=== PATIENT | female | born 1980 | race Caucasian/White ===

== ENCOUNTER 2017-03-26 06:57 | Day surgery (SDC) | payer OTHER ==
[2017-03-19 11:39] VITALS: BMI 35.5
--- NOTE | 2017-03-20 13:55 | HP ---
Admitting History and Physical - Primary Care Physician PCP: Apple Madrigal - Admission Chief Complaint: Left breast cancer History of Present Illness: 36 year old premenapausal nulliparous female with Left breast cancer with tita mets stage 2B triple positve. She had an outstanding results S/P neoadjuvant chemotherapy. 02/2017 Breast MRI right breast negative left breast showed considerable decrease in size of left breast cancer from 2.1x2.8x1.3cm to 1.3x.4x.8cm. previously noted left axillary nodes are much smaller and now of normal size. History Source: Patient Limitations to Obtaining History: No Limitations - Past Medical History ...LMP: 10/16/16 Additional Past Medical History: left core bx and axillary core bx07/25/2016 invasive ductal carcinoma - Smoking History Smoking history: Former smoker Have you smoked in the past 12 months: No - Alcohol/Substance Use Hx Alcohol Use: No Home Medications - Allergies Allergies/Adverse Reactions: Allergies Allergy/AdvReac Type Severity Reaction Status Date / Time Iodinated Contrast Media - Allergy Severe Hives Verified 03/19/17 11:28 Oral and - Home Medications Home Medications: Ambulatory Orders Cholecalciferol (Vitamin D3) [Vitamin D3] 2,000 unit PO DAILY 03/19/17 Family Disease History - Family Disease History Other Family History: mat GGM renal cell carcinoma Physical Examination Constitutional: Yes: Well Nourished Breast(s): Yes: Other (excellent response to chemotherapy left breast) Problem List - Problems (1) Breast cancer, left breast Code(s): C50.912 - MALIGNANT NEOPLASM OF UNSPECIFIED SITE OF LEFT FEMALE BREAST Qualifiers: Breast location: upper outer quadrant of breast Patient sex: female Qualified Code(s): C50.412 - Malignant neoplasm of upper-outer quadrant of left female breast Assessment/Plan Left wide excision ,lymphoscintogram sentenel node biopsy, US needle localization of left breast and left axillary node
[2017-03-26] MEDS ORDERED: MIDAZOLAM HCL 2 MG/2 ML SINGLE DOSE VIAL ONE ×2 (11:45→12:51)
[2017-03-26] MEDS ORDERED: BUPIVACAINE HCL 0.25% 125 MG/50 ML VIAL ONE (12:22)
[2017-03-26] MEDS ORDERED: LIDOCAINE HCL 1%, 10 MG/ML (20ML VIAL) ONE ×2 (12:22→12:59)
[2017-03-26] MEDS ORDERED: ISOSULFAN BLUE 10 MG/ML VIAL SQ ONE ×2 (12:23→12:59)
[2017-03-26] MEDS ORDERED: PROPOFOL 20 ML ONE ×2 (12:57)
[2017-03-26] MEDS ORDERED: ROCURONIUM BROMIDE 50 MG/5 ML VIAL ONE (12:57)
[2017-03-26] MEDS ORDERED: ceFAZolin SODIUM 1 GM VIAL ONE ×3 (13:23→16:56)
[2017-03-26] MEDS ORDERED: ONDANSETRON 4 MG/2 ML VIAL ONE (13:45)
[2017-03-26] MEDS ORDERED: DEXAMETHASONE SOD PHOSPHATE 4 MG/1 ML VIAL ONE (13:45)
[2017-03-26] MEDS ORDERED: NEOSTIGMINE METHYLSULFATE 0.5 MG/ML - 10 ML MDV ONE (13:59)
[2017-03-26] MEDS ORDERED: GLYCOPYRROLATE 0.2 MG/1 ML VIAL ONE (13:59)
[2017-03-26] MEDS ORDERED: HYDROmorphone HCL/PF 1 MG/ML VIAL (FOR PYXIS CHARGING ONLY) ONE (14:14)
[2017-03-26] MEDS ORDERED: ZOLPIDEM TARTRATE 5 MG TABLET PO PRN (15:24)
[2017-03-26] MEDS ORDERED: ACETAMINOPHEN 325 MG TABLET (FP) PO PRN (15:24)
[2017-03-26] MEDS ORDERED: oxyCODONE HCL 5 MG TABLET PO PRN (15:24)
[2017-03-26] MEDS ORDERED: ONDANSETRON 4 MG/2 ML VIAL IVPB PRN (15:24)
[2017-03-26] MEDS ORDERED: ONDANSETRON 4 MG/2 ML VIAL IVPUSH PRN (15:26)
[2017-03-26] MEDS ORDERED: PROMETHAZINE HCL 25 MG/1 ML VIAL IVPUSH PRN (15:26)
[2017-03-26] MEDS ORDERED: HYDROmorphone HCL CARPU-JECT 1 MG/1 ML DISP.SYRIN IVPUSH PRN (15:26)
[2017-03-26] MEDS ORDERED: DEXTROSE 5%-0.45% SALINE 1,000 ML IV SCH (15:30)
[2017-03-27] MEDS: CEFAZOLIN (PRE-DOCKED) 50 ML IVPB SCH ×2 (01:31→10:29)
[2017-03-27 06:31] VITALS: BP 117/71; PULSE 95; TEMP 98.4
[2017-03-27 08:19] LABS: MCH 29.2 pg (25.7-33.7); MCHC 34.5 g/dl (32.0-36.0); MEAN CELL VOLUME 84.8 fl (80-96); MEAN PLT VOLUME 7.4 fl (7.5-11.1); PLATELET COUNT 306 K/MM3 (134-434); RDW 12.6 % (11.6-15.6); WHITE BLOOD COUNT 11.4 K/mm3 (4.0-10.8)
[2017-03-27] MEDS ORDERED: CHOLECALCIFEROL (VITAMIN D3) 1,000 UNIT TABLET (FP) PO SCH (10:00)
--- NOTE | 2017-03-27 11:13 | PN ---
Progress Note (short form) - Note Progress Note: Patient doing well. POD#1 s/p ax node dissection and lumpectomy. Pain adequately controlled. Nausea resolved. Continue current care.
--- NOTE | 2017-03-27 16:48 | OP ---
DATE OF OPERATION: 03/26/2017 PREOPERATIVE DIAGNOSIS: Left breast cancer with axillary metastasis, status post neoadjuvant chemotherapy. POSTOPERATIVE DIAGNOSIS: Left breast cancer with axillary metastasis, status post neoadjuvant chemotherapy. PROCEDURE PERFORMED: Left breast partial mastectomy with complex tissue transfer, sentinel lymph node biopsy and axillary lymph node dissection. SURGEON: Apple Madrigal MD [employer]SPORTATION DIRECTOR: ALAN Michelle ANESTHESIA: General, intubated. ESTIMATED BLOOD LOSS: Minimal. COMPLICATIONS: None. DESCRIPTION OF PROCEDURE: The patient was made aware of the risks and benefits of the procedure and consented. She was placed in the supine position, after going to Nuclear Medicine to get injected with technetium as well as Radiology for clip placement in the left breast. They were unable to see the left axillary clip and could not place a needle in that region. After general anesthesia was induced, the patient was intubated. One percent isosulfan blue 3.0 mL was locally infiltrated into the left breast tissue. The operative site was prepped and draped in the usual sterile fashion. Waiting approximately 10 minutes with gentle manual compression, a curvilinear incision was made in the left axilla. Using blunt and sharp dissection, tissues were dissected down to the axillary fat. Unfortunately, there was no obvious blue or radioactive tracer identified. There was a cluster of lymph nodes with some thickening where the usual sentinel nodes are identified, and these were surgically excised and submitted for a specimen radiograph, which showed the clip from the prior ultrasound-guided core biopsy of an axillary node. This specimen was then turned over for frozen section. Sterile gauze was placed in the axilla, and the breast was approached. A curvilinear elliptical incision was made over the left breast needle localization. Using electrocautery, tissues were dissected down to the needle. The needle was withdrawn to the puncture site and a wire to the wound. The tissues around the wire were then sharply excised and submitted with a short suture superior and long suture lateral. Specimen radiograph confirmed the presence of the index clip as well as adjacent suspicious microcalcifications. Additional segments were taken superior, inferior, medial, lateral and deep. The superficial margin was not taken as the skin overlying the lesion was removed. The wound was copiously irrigated with normal saline and hemostasis maintained by electrocautery. Tissue flaps were then formed and rotated into the cavity and closed with multiple layers of [id number] suture of 2-0 Vicryl in a scaffolding-type fashion. The skin was then closed with deep 3-0 Vicryl followed by running subcuticular 4-0 Monocryl. By that time the frozen section reported as 3 positive lymph nodes out of 7 lymph nodes excised. A dissection was then performed. The long thoracic nerve was identified medially and retracted medially. The thoracodorsal trunk was found and retracted laterally. Tissues were identified all the way up to the axillary vein and the tissue between the two were bluntly and sharply dissected free and submitted as additional left axillary tissue. The wound was copiously irrigated with normal saline. Hemostasis was maintained by electrocautery. Through an inferior stab wound, a number 10 Harshil-Thompson drain was placed into the axilla. The axillary tissue was then closed with deep 3-0 Vicryl followed by running subcuticular 4-0 Monocryl. Steri-Strips, sterile dressing and a compression bra were then applied. The patient, having tolerated the procedure well, was transferred to the recovery room in excellent condition. Spring [id number]
[2017-03-27] MEDS ORDERED: HEPARIN NA (PORCINE) 5,000 UNITS/ML 1ML VIAL SQ SCH (22:00)
--- NOTE | 2017-04-01 15:24 | PATH ---
Surgical Pathology Report Patient Name: ARIADNA JARAMILLO [facility]. Rec. #: [id number] /Age/Gender: 1980 (Age: 36) / F Account: [id number] Location: [facility] Taken: 03/26/2017 Received: 03/26/2017 Reported: 04/01/2017 Physicians: Apple Madrigal M.D. Specimen(s) Received A: LEFT AXILLARY NODES B: LEFT BREAST WIDE EXCISION C: LEFT BREAST DEEP MARGIN D: LEFT BREAST MEDIAL MARGIN E: LEFT BREAST SUPERIOR MARGIN F: LEFT BREAST INFERIOR MARGIN G: LEFT BREAST LATERAL MARGIN H: LEFT COMPLETION AXILLARY DISSECTION LEFT BREAST Clinical History Breast cancer Intraoperative Consult Diagnosis A. Left axillary nodes, frozen section A1, A2, A3, A4: Three of 7 (3/7) nodes positive for metastatic carcinoma. Bon Diane M.D., 03/26/17 Final Diagnosis A. LYMPH NODES, LEFT AXILLARY, SENTINEL LYMPH NODE EXCISION: METASTATIC CARCINOMA PRESENT IN THREE OF SEVEN LYMPH NODES (3/7), WITH LARGEST FOCUS MEASURING 3 MM IN GREATEST DIMENSION. NO EXTRACAPSULAR EXTENSION IDENTIFIED. B. LEFT BREAST, WIDE EXCISION WITH WIRE LOCALIZATION: INVASIVE DUCTAL CARCINOMA WITH FOCAL MICROPAPILLARY FEATURES, VAUGHN GRADE 2 OF 3 (TUBULE SCORE 3 OF 3, NUCLEAR GRADE 3 OF 3, MITOTIC SCORE 1 OF 3, TOTAL 7 OF 9), MEASURING 1.4 CM IN GREATEST DIMENSION MEASURED ON A SLIDE. DUCTAL CARCINOMA IN SITU (DCIS), HIGH NUCLEAR GRADE, SOLID PATTERN WITH CENTRAL NECROSIS AND ASSOCIATED CALCIFICATION PRESENT IN 10 OF 11 SUBMITTED SECTIONS (EXTENSIVE INTRADUCTAL COMPONENT). LYMPH-VASCULAR INVASION IS PRESENT. NO INVOLVEMENT OF OVERLYING SKIN IDENTIFIED. DCIS DIRECTLY EXTENDS TO THE DEEP ASPECT OF THE SPECIMEN, AND DCIS AND INVASIVE CARCINOMA ARE LESS THAN 1 MM FROM THE MEDIAL ASPECT OF THE SPECIMEN (SEE SPECIMENS C-G FOR FINAL MARGINS). C. LEFT BREAST, DEEP MARGIN, EXCISION: DUCTAL CARCINOMA IN SITU (DCIS), HIGH NUCLEAR GRADE, SOLID PATTERN PRESENT IN 3 OF 5 SUBMITTED BLOCKS. DCIS IS LESS THAN 1 MM FROM THE INKED MARGIN. ENDOLYMPHATIC TUMOR EMBOLI ARE PRESENT. D. LEFT BREAST, MEDIAL MARGIN, EXCISION: BENIGN BREAST TISSUE. E. LEFT BREAST, SUPERIOR MARGIN, EXCISION: DUCTAL CARCINOMA IN SITU (DCIS), HIGH NUCLEAR GRADE, SOLID PATTERN PRESENT IN 3 OF 4 SUBMITTED BLOCKS. DCIS IS LESS THAN 1 MM FROM THE INKED MARGIN. ENDOLYMPHATIC TUMOR EMBOLI ARE PRESENT. F. LEFT BREAST, INFERIOR MARGIN, EXCISION: DUCTAL CARCINOMA IN SITU (DCIS), HIGH NUCLEAR GRADE, SOLID PATTERN PRESENT IN ONE OF 3 SUBMITTED BLOCKS. DCIS IS 2 MM FROM THE INKED MARGIN. ENDOLYMPHATIC TUMOR EMBOLI ARE PRESENT. G. LEFT BREAST, LATERAL MARGIN, EXCISION: DUCTAL CARCINOMA IN SITU (DCIS), HIGH NUCLEAR GRADE, SOLID PATTERN PRESENT IN ONE OF 4 SUBMITTED BLOCKS. DCIS IS 5 MM FROM THE INKED MARGIN H. LYMPH NODES, LEFT AXILLARY, COMPLETION DISSECTION: METASTATIC CARCINOMA PRESENT IN FOUR OF FIFTEEN LYMPH NODES (4/15), WITH LARGEST METASTATIC FOCUS MEASURING 5 MM IN GREATEST DIMENSION. ONE LYMPH NODE SHOWS MINIMAL EXTRACAPSULAR EXTENSION. Comment: Assays for ER, NJ, Her2 and Ki67 are pending, and a report will follow. See also prior Slide Review [id number]. Comments Breast Invasive Carcinoma: Surgical Pathology Cancer Case Summary Based on AJCC/UICC TNM, 7th edition Procedure _X__ Excision with image-guided localization Lymph Node Sampling (select all that apply) (required only if lymph nodes are present in the specimen) _X__ [place] lymph node(s) _X__ Axillary dissection (partial or complete dissection) Specimen Laterality _X__ Left Tumor Size: Size of Largest Invasive Carcinoma Greatest dimension of largest focus of invasion over 1 mm: 14 mm Tumor Focality _X__ Single focus of invasive carcinoma Macroscopic and Microscopic Extent of Tumor Skin _X__ Invasive carcinoma does not invade into the dermis or epidermis Nipple _X__ Not applicable (excisions less than total mastectomy) Ductal Carcinoma In Situ (DCIS) _X__ DCIS is present _X__ as a major component (>25% of tumor, extensive intraductal component) Histologic Type of Invasive Carcinoma : _X__ Other(s) (specify): _Iinvasive ductal carcinoma with focal micropapillary features_ Histologic Grade: (Vaughn Histologic Score) Tubular Differentiation _X__ Score 3 Nuclear Pleomorphism _X__ Score 3 Mitotic Rate _X__ Score 1 Overall Grade _X__ Grade 2: scores of 6 or 7 (moderately differentiated) Margins _X__ Margins uninvolved by invasive carcinoma (required only if residual invasive carcinoma is present in specimen) Distance from closest margin: Cannot be determined. Invasive carcinoma is <1mm from the medial aspect of the wide excision (Specimen B), but is not present in the final margins (Specimens C-G) _X__ Margin(s) close to (< 1 mm) DCIS: Deep and Superior Lymph-Vascular Invasion _X__ Present Lymph Nodes Total number of lymph nodes examined (sentinel and nonsentinel): 22 Number of sentinel lymph nodes examined: 7 Number of lymph nodes with macrometastases ( > 2 mm): 6 Number of lymph nodes with micrometastases (>0.2 mm to 2 mm and/or >200cells):1 Number of lymph nodes with isolated tumor cells (=0.2 mm and =200 cells): 0 Size of largest metastatic deposit (if present): 5 mm Extranodal Extension _X__ Present Pathologic Staging (pTNM) Primary Tumor (Invasive Carcinoma): ypT1c Regional Lymph Nodes (pN): ypNa Biomarker Studies Results of ER, NJ, Her2 and Ki67 studies will be reported separately in an addendum. Electronically Signed Amaury Diane M.D. Addendum Reported: 04/03/2017 Addendum Diagnosis Part B: Results of Estrogen Receptor (ER) and Progesterone Receptor (NJ) studies performed on block B1 at [facility] are as follows: ER (clone [id number] mouse monoclonal antibody by [employer]): >90% nuclear staining with moderate intensity (Positive). NJ (clone16 mouse monoclonal antibody by [employer]): ~90% nuclear staining with strong intensity (Positive). Results of Her2 (IHC) & Ki-67 studies performed on block B1 at [place], [place] ([id number]) are as follows: Her2 IHC (EP3 from [employer], formerly known as [id number], using [employer] Polymer Refine detection kit): 0 (Negative) Ki-67: ~30% (High proliferation index) Positive and negative controls (internal if applicable) show appropriate results. Formalin fixation and cold ischemic times are within current ASCO/CAP recommendations for ER, NJ and Her2 testing. Camacho Lewis M.D. Addendum Reported: 04/18/2017 Addendum Diagnosis Per request from Dr. Dorina Lebron on 04/09/17, ER, NJ & Her2 studies were performed on one manufacturer representative left axillary sentinel lymph node: Results of ER &NJ studies performed on block A4 (left axillary sentinel lymph node) at [facility] are as follows: ER (clone [id number] mouse monoclonal antibody by [employer]) : >90 % nuclear staining with strong intensity (Positive). NJ (clone16 mouse monoclonal antibody by [employer]): >90% nuclear staining with strong intensity (Positive). Results of Her2 (IHC) & Ki-67 studies performed on block A4 (left axillary sentinel lymph node) at [facility], [place], [place] ([id number]) are as follows: Her2 IHC (EP3 from [employer], formerly known as [id number], using [employer] Polymer Refine detection kit):0 (Negative). Positive and negative controls (internal if applicable) show appropriate results. Formalin fixation and cold ischemic times are within current ASCO/CAP recommendations for ER, NJ and Her2 testing. Coco Freeman M.D. Addendum Reported: 05/03/2017 Addendum Diagnosis This case was reviewed at [facility], and slides from the superior and inferior margin specimens (Specimens E and F) were re-examined, along with additional immunostains performed at [facility] in [place], [place] ([id number]). In addition to the previously noted DCIS and lymph-vascular tumor emboli, additional foci of invasive carcinoma are present. These foci are <1 mm from the Superior and Inferior margin. Amaury Diane M.D. Gross Description A. Received fresh for frozen section labeled "left axillary nodes" is a 5 x 4 x 1.5 cm portion of yellow adipose tissue containing 7 possible lymph nodes, the largest of which measures 1.3 cm in greatest dimension. The 3 largest lymph nodes are bisected and show a uniform tatum cut surface with no lesions identified. All of the lymph nodes are frozen and the frozen remainders are submitted as follows: A1-one bisected lymph node; A2-one bisected lymph node; A3-one bisected lymph node; A4-4 possible lymph nodes. B. Received in formalin, labeled "left breast wide excision," is a 5.3 x 4.7 x 4.5 cm. tatum-yellow, irregular, portion of fibroadipose tissue with a needle localization wire present. There is a short suture marking the superior aspect and a long suture marking the lateral aspect, per the surgeon. The anterior surface displays a 3.2 x 0.8 cm tatum, elliptical portion of skin. The specimen is inked as follows: Superior blue; inferior green; lateral red; medial yellow; deep black. The specimen is serially sectioned from medial to lateral. Sectioning reveals a 1.3 x 0.9 x 0.9 cm tatum, ill-defined, indurated mass focally at 0.5 cm from the superior margin. The mass is surrounded by focally firm fibrous tissue. The remaining margins appear clear of the mass. Side Seam Tender sections are submitted in 11 cassettes as follows: 1-fullface section of mass with superior margin; 2-additional mass with superior margin; 3-4-fibrous tissue with skin; 5-6-fibrous tissue with inferior margin; 7-8-fibrous tissue with deep margin; 9-10-medial margin; 11-lateral margin. Time to formalin fixation: 5 minutes Total formalin fixation time: Approximately 28 hours. C. Received in formalin labeled "deep margin left breast," is a 3.3 x 3.1 x 0.9 cm irregular portion of fibroadipose tissue with a clip marking the new margin, per the surgeon. The new margin is inked black and the specimen is serially sectioned. The specimen is entirely and sequentially submitted in 5 cassettes. D. Received in formalin labeled "medial margin left breast," is a 4.2 x 3.0 x 1.4 cm irregular portion of fibroadipose tissue with a clip marking the new margin, per the surgeon. The new margin is inked black and the specimen is serially sectioned. Side Seam Tender sections are sequentially submitted in 5 cassettes. E. Received in formalin labeled "superior margin left breast," is a 3.0 x 2.3 x 1.3 cm irregular portion of fibroadipose tissue with a clip marking the new margin, per the surgeon. The new margin is inked black and the specimen is serially sectioned. The specimen is entirely and sequentially submitted in 4 cassettes. F. Received in formalin labeled "inferior margin left breast," is a 3.0 x 2.1 x 0.6 cm irregular portion of fibroadipose tissue with a clip marking the new margin, per the surgeon. The new margin is inked black and the specimen is serially sectioned. The specimen is entirely submitted in 3 cassettes. G. Received in formalin labeled "lateral margin left breast," is a 4.0 x 3.1 x 1.0 cm irregular portion of fibroadipose tissue with a clip marking the new margin, per the surgeon. The new margin is inked black and the specimen is serially sectioned. Side Seam Tender sections are sequentially submitted in 4 cassettes. H. Received in formalin labeled "left completion axillary dissection left breast," is a 9.5 x 8.0 x 1.8 cm aggregate of yellow, lobulated adipose tissue. Sectioning reveals multiple tatum, irregular lymph nodes ranging from 0.3-0.8 cm in greatest dimension. The lymph nodes are entirely submitted in 7 cassettes as follows: 1-3-one whole bisected lymph node each; 5-5-qjwaohps whole lymph nodes each. [facility]/03/26/2017 [facility]/03/26/2017
== END 2017-03-27 12:01 | disposition home or self-care (01) ==
LOC: FASU 06:57 → FM/S 19:44 → FASU 03-27 12:01
PROVIDERS: ATTEND Surgery Surgical Oncology
PROC: 0HBU0ZZ Excision of Left Breast, Open Approach (ICD-10-PCS; principal; 2017-03-26 13:37)
PROC: 0JX60ZB Transfer Chest Subcutaneous Tissue and Fascia with Skin and Subcutaneous Tissue, Open Approach (ICD-10-PCS; 2017-03-26 13:37)
DX: C50.912 Malignant neoplasm of unspecified site of left female breast (principal); C77.3 Secondary and unspecified malignant neoplasm of axilla and upper limb lymph nodes
CPT/HCPCS: 19281; 36415; 78195-TC; 84703; 85027; 88307-TC; 88331-TC; 88332; 88342-TC; 94760; A9541

== ENCOUNTER 2017-08-20 06:23 | Inpatient (IN) | payer OTHER ==
--- NOTE | 2017-08-16 13:52 | HP ---
Admitting History and Physical - Primary Care Physician PCP: Apple Madrigal - Admission Chief Complaint: left breast cancer with mets History of Present Illness: 37 yo female S/P left WE ANDx 03/26/2017 ,neoadjuvant chemo for this left mod- diff IDC, ER/RI positive, HER2 pos, and 7+/22 nodes is now presenting for mastectomy with reconstruction. Patient is getting Herceptin and had left chest wall radiation as well. (1.4 cm of residual infiltrating ductal noted). History Source: Patient Limitations to Obtaining History: No Limitations - Past Medical History ...LMP: 10/16/16 - Past Surgical History Additional Past Surgical History: left breast WE with NL and ANDx (1.4 cm residual IDC 7+/22 nodes) 03/26/2017 - Smoking History Smoking history: Former smoker Have you smoked in the past 12 months: No - Alcohol/Substance Use Hx Alcohol Use: No Home Medications - Allergies Allergies/Adverse Reactions: Allergies Allergy/AdvReac Type Severity Reaction Status Date / Time Iodinated Contrast- Oral and Allergy Severe Hives Verified 03/19/17 11:28 IV Dye [Iodinated Contrast Media - Oral and] - Home Medications Home Medications: Ambulatory Orders Cholecalciferol (Vitamin D3) [Vitamin D3] 2,000 unit PO DAILY 03/19/17 Oxycodone HCl/Acetaminophen [Percocet 5-325 mg Tablet -] 1 - 2 tab PO Q6H #30 tablet MDD 6 03/26/17 Family Disease History - Family Disease History Other Family History: mat GGM-renal ca Review of Systems - Review of Systems Constitutional: reports: No Symptoms Physical Examination Constitutional: Yes: Well Nourished, Calm Breast(s): Yes: Other (Left well healed incision without discharge or erythema. No other palpable masses or adenopathy noted.) Problem List - Problems (1) Breast cancer, left breast Code(s): C50.912 - MALIGNANT NEOPLASM OF UNSPECIFIED SITE OF LEFT FEMALE BREAST Qualifiers: Breast location: upper outer quadrant of breast Patient sex: female Qualified Code(s): C50.412 - Malignant neoplasm of upper-outer quadrant of left female breast; Z17.0 - Estrogen receptor positive status [ER+] Assessment/Plan Plan: Left total mastectomy with reconstruction
[2017-08-16 15:12] VITALS: BMI 35.4
[2017-08-20] MEDS ORDERED: HEPARIN NA (PORCINE) 5,000 UNITS/ML 1ML VIAL ONE (07:15)
[2017-08-20] MEDS ORDERED: LIDOCAINE HCL 4% PRESERVE-FREE 5 ML AMP ONE ×2 (07:17→17:09)
[2017-08-20] MEDS ORDERED: BUPIVACAINE LIPOSOME/PF (EXPAREL) 266 MG/20 ML VIAL NR ONE (07:30)
[2017-08-20] MEDS ORDERED: SUCCINYLCHOLINE CHLORIDE 200 MG/10 ML VIAL ONE (07:53)
[2017-08-20] MEDS ORDERED: ROCURONIUM BROMIDE 50 MG/5 ML VIAL ONE ×4 (07:53→12:12)
[2017-08-20] MEDS ORDERED: PROPOFOL 20 ML ONE (07:53)
[2017-08-20] MEDS ORDERED: MIDAZOLAM HCL 2 MG/2 ML SINGLE DOSE VIAL ONE (07:54)
[2017-08-20] MEDS ORDERED: LIDOCAINE HCL/PF 2% SDV 5ML VIAL ONE (07:55)
[2017-08-20] MEDS ORDERED: SCOPOLAMINE HYDROBROMIDE 1 PATCH PATCH.TD72 ONE (08:01)
[2017-08-20] MEDS ORDERED: HEPARIN NA (PORCINE) 5,000 UNITS/ML 1ML VIAL SQ ONE (08:46)
[2017-08-20] MEDS ORDERED: DEXAMETHASONE SOD PHOSPHATE 4 MG/1 ML VIAL ONE (08:50)
[2017-08-20] MEDS ORDERED: ceFAZolin SODIUM 1 GM VIAL ONE ×2 (08:50→14:05)
[2017-08-20] MEDS ORDERED: ONDANSETRON 4 MG/2 ML VIAL ONE ×2 (08:50→18:21)
[2017-08-20] MEDS ORDERED: ceFAZolin SODIUM 1 GM VIAL IVPB ONE (08:53)
[2017-08-20] MEDS ORDERED: HYDROmorphone HCL/PF 1 MG/ML VIAL (FOR PYXIS CHARGING ONLY) ONE ×2 (09:20→14:21)
[2017-08-20] MEDS ORDERED: DESFLURANE GAS 240 ML BOTTLE IH ONE (09:45)
[2017-08-20] MEDS ORDERED: GLYCOPYRROLATE 0.2 MG/1 ML VIAL ONE (15:34)
[2017-08-20] MEDS ORDERED: NEOSTIGMINE METHYLSULFATE 0.5 MG/ML - 10 ML MDV ONE (15:34)
[2017-08-20] MEDS ORDERED: ALTEPLASE 2 MG VIAL IA ONE (16:39)
[2017-08-20] MEDS ORDERED: HEPARIN INFUSION - 500 ML IVPB ONE (16:46)
[2017-08-20] MEDS ORDERED: PROMETHAZINE HCL 25 MG/1 ML VIAL IVPUSH PRN (18:32)
[2017-08-20] MEDS ORDERED: METOCLOPRAMIDE HCL INJECTION 10 MG/2 ML VIAL IVPB PRN (18:37)
[2017-08-20] MEDS ORDERED: ONDANSETRON 4 MG/2 ML VIAL IVPUSH PRN (18:37)
[2017-08-20] MEDS ORDERED: PROCHLORPERAZINE MALEATE 25 MG SUPP.RECT PR PRN (18:37)
[2017-08-20] MEDS ORDERED: ZOLPIDEM TARTRATE 5 MG TABLET PO PRN (18:37)
[2017-08-20] MEDS ORDERED: D5-1/2NS+10 MEQ KCL - 1,000 ML IV SCH (18:45)
[2017-08-20] MEDS ORDERED: LACTATED RINGERS SOLUTION 1,000 ML IV SCH (18:45)
[2017-08-20] MEDS ORDERED: HYDROmorphone *PCA* 10MG/50ML DISP.SYRIN PCA SCH ×2 (18:45→20:02)
[2017-08-20 20:25] LABS: MCHC 33.4 g/dl (32.0-36.0); MEAN CELL VOLUME 83.8 fl (80-96); MEAN PLT VOLUME 7.3 fl (7.5-11.1); PLATELET COUNT 241 K/MM3 (134-434); RDW 13.5 % (11.6-15.6); WHITE BLOOD COUNT 13.6 K/mm3 (4.0-10.0)
[2017-08-20 20:55] LABS: ANION GAP 6 (8-16); CO2 27 mmol/L (21-32); CREATININE 0.7 mg/dL (0.55-1.02); GLUCOSE,RANDOM 200 mg/dL (74-106)
[2017-08-20] MEDS ORDERED: HEPARIN NA (PORCINE) 5,000 UNITS/ML 1ML VIAL SQ SCH (22:00)
--- NOTE | 2017-08-20 22:27 | SURG ---
Surgery Mine Technician Note Mine Technician: Onel Cordoba PA-C Date of Service: 08/20/17 Diagnosis: Left breast cancer Procedure: Left breast reconstruction --> JOE flap I was present for the entirety of the operative procedure. For further detail, please refer to operative report. Visit type - Case Type Case Type: Scheduled Admission - New patient This patient is new to me today: Yes Date on this admission: 08/21/17
--- NOTE | 2017-08-20 22:58 | CONSULT ---
Consult Consult Specialty:: Pulmonary critical care Reason for Consultation:: s/p left total mastectomy with reconstuction - History of Present Illness Chief Complaint: s/p mastectomy with reconstruction History of Present Illness: Pt is a 36 yo female with L breast CA presented today for Left total mastectomy with reconstruction and JOE flap. Now transferred to ICU for post-op observation and management. On arrival to ICU pt extubated, hemodynamically stable with no complaints. Post op Hgb 10.5, 2 units ordered prior to pt's transfer and 1st unit is now infusing. Pt on dilaudid PERSONNEL TRAINING OFFICER for pain with adequate rebolledo relief. She was also started on abx in OR with plan to continue. Current Medications Fentanyl (Sublimaze Injection -) 25 mcg IVPUSH [id number] PRN PRN Reason: PAIN Stop: 08/23/17 18:42 Last Admin: 08/20/17 19:10 Dose: 25 mcg Heparin Sodium (Porcine) (Heparin -) 5,000 unit SQ BID ERI Hydromorphone HCl (Dilaudid Director Advanced -) 10 mg PERSONNEL TRAINING OFFICER PERSONNEL TRAINING OFFICER ERI PRN Reason: Protocol Stop: 08/27/17 18:34 Lactated Ringer's (Lactated Ringers Solution) 1,000 mls @ 75 mls/hr IV ASDIR ERI Cefazolin Sodium 1 gm/ (Dextrose) 50 mls @ 100 mls/hr IVPB Q8H-IV ERI Potassium Chloride/Dextrose/Sod Cl (D5-1/2ns+10 Meq Kcl -) 1,000 mls @ 150 mls/ hr IV ASDIR ERI Stop: 08/21/17 18:37 Metoclopramide HCl (Reglan Injection -) 10 mg IVPB Q6H PRN PRN Reason: NAUSEA AND/OR VOMITING Ondansetron HCl (Zofran Injection) 4 mg IVPUSH Q6H PRN PRN Reason: NAUSEA AND/OR VOMITING Prochlorperazine Maleate (Compazine Suppository -) 25 mg DC Q12H PRN PRN Reason: NAUSEA AND/OR VOMITING Promethazine HCl (Phenergan Injection -) 12.5 mg IVPUSH Q6H PRN PRN Reason: NAUSEA-FOR RESCUE AFTER 15 MIN Stop: 08/21/17 00:33 Zolpidem Tartrate (Ambien -) 5 mg PO HS PRN PRN Reason: INSOMNIA Stop: 08/23/17 18:37 - Past Medical History ...LMP: 10/16/16 ...LMP Comment: SINCE CHEMO ...: No - Alcohol/Substance Use Hx Alcohol Use: Yes (RARELY) - Smoking History Smoking history: Never smoked Have you smoked in the past 12 months: No Home Medications - Allergies Allergies/Adverse Reactions: Allergies Allergy/AdvReac Type Severity Reaction Status Date / Time Iodinated Contrast- Oral and Allergy Severe Hives Verified 08/20/17 07:32 IV Dye [Iodinated Contrast Media - Oral and] hydrocodone bitartrate AdvReac Severe Verified 08/20/17 07:32 [From Vicodin] oxycodone AdvReac Severe Verified 08/20/17 07:32 - Home Medications Home Medications: Ambulatory Orders Cholecalciferol (Vitamin D3) [Vitamin D3] 2,000 unit PO DAILY 03/19/17 Aspirin EC 81 mg PO DAILY 08/16/17 Tamoxifen Citrate 20 mg PO DAILY 08/16/17 Family Disease History - Family Disease History Other Family History: mat GGM-renal ca Physical Exam Vital Signs: Vital Signs Temperature 97.6 F 08/20/17 18:25 Pulse Rate 68 08/20/17 21:55 Respiratory Rate 16 08/20/17 21:55 Blood Pressure 115/60 08/20/17 21:55 O2 Sat by Pulse Oximetry (%) 100 08/20/17 21:55 Constitutional: Yes: No Distress Eyes: Yes: WNL Cardiovascular: Yes: Regular Rate and Rhythm Respiratory: Yes: CTA Bilaterally Gastrointestinal: Yes: Soft, Other (lower abdomen incision c/d/i with steri strips and KHOA drain draining serosanguinous fluid) Edema: No Integumentary: Yes: Incision (Left breast and lower abdomen incisions c/d/i with steri strips and 3 KHOA drains. Arterial doppler attached) Labs: CBC, BMP 08/20/17 20:10 08/20/17 20:10 Problem List - Problems (1) Breast cancer, left breast Code(s): C50.912 - MALIGNANT NEOPLASM OF UNSPECIFIED SITE OF LEFT FEMALE BREAST Qualifiers: Breast location: upper outer quadrant of breast Patient sex: female Qualified Code(s): C50.412 - Malignant neoplasm of upper-outer quadrant of left female breast; Z17.0 - Estrogen receptor positive status [ER+] Assessment/Plan ASSESSMENT: Pt is a 36 yo female with L breast CA presented today for Left total mastectomy with reconstruction and JOE flap. Now transferred to ICU for post-op observation and management. PLAN: -surgery following -monitor KHOA drain output -transfuse 2 units PRBC -CBC post transfusion -pain management with dilaudid PERSONNEL TRAINING OFFICER -antiemetics -cont fluids -Heparin SubQ for DVT ppx -cont Cefazolin Uma Lynch Critical Care time: 35 min
[2017-08-21] MEDS ORDERED: CEFAZOLIN 1 GM in DEXTROSE 5%-WATER - 50 ML IVPB SCH ×2 (02:00→10:00)
[2017-08-21] MEDS ORDERED: PT OWN MED DRAWER 7, Y5N ONE ×3 (02:26→19:29)
[2017-08-21 05:11] LABS: BASOPHIL 0.1 % (0-2.0); MCH 28.4 pg (25.7-33.7); MCHC 32.7 g/dl (32.0-36.0); MEAN CELL VOLUME 86.7 fl (80-96); NEUTROPHILS 84.8 % (42.8-82.8); PLATELET COUNT 181 K/MM3 (134-434); RDW 13.8 % (11.6-15.6); WHITE BLOOD COUNT 9.4 K/mm3 (4.0-10.0)
[2017-08-21 05:22] LABS: INR 1.32 (0.82-1.09); PROTHROMBIN TIME (PATIENT) 14.6 SEC (9.98-11.88)
[2017-08-21] MEDS ORDERED: HEPARIN NA (PORCINE) 5,000 UNITS/ML 1ML VIAL ONE (05:54)
[2017-08-21] MEDS ORDERED: LIDOCAINE HCL 4% PRESERVE-FREE 5 ML AMP ONE (05:55)
[2017-08-21] MEDS ORDERED: PROPOFOL 20 ML ONE (06:07)
[2017-08-21] MEDS ORDERED: ROCURONIUM BROMIDE 50 MG/5 ML VIAL ONE ×3 (06:08→07:42)
[2017-08-21] MEDS ORDERED: ceFAZolin SODIUM 1 GM VIAL IVPB ONE (06:20)
[2017-08-21] MEDS ORDERED: MIDAZOLAM HCL 2 MG/2 ML SINGLE DOSE VIAL ONE (06:22)
[2017-08-21] MEDS ORDERED: ePHEDrine SULFATE 50 MG/1 ML AMPULE ONE (06:58)
[2017-08-21] MEDS ORDERED: HEPARIN INFUSION - 500 ML IVPB ONE (07:16)
[2017-08-21] MEDS ORDERED: GLYCOPYRROLATE 0.2 MG/1 ML VIAL ONE (08:11)
[2017-08-21] MEDS ORDERED: NEOSTIGMINE METHYLSULFATE 0.5 MG/ML - 10 ML MDV ONE (08:12)
[2017-08-21] MEDS ORDERED: LIDOCAINE HCL/PF 2% SDV 5ML VIAL ONE (08:20)
--- NOTE | 2017-08-21 08:46 | PN ---
Progress Note (short form) - Note Progress Note: Called at 4:30 loss of arterial flow signal. At bedside at 5:00, in OR by 5:30 for revision of anastamosis. Patient aware of need for continued monitoring. Flap is re-perfused. Heparin gtt started ASA to start Continue ICU monitoring and continuous flap monitoring
[2017-08-21] MEDS: HEPARIN INFUSION - 500 ML IVPB SCH (08:50)
--- NOTE | 2017-08-21 08:53 | OP ---
DATE OF OPERATION: 08/20/2017 PREOPERATIVE DIAGNOSIS: Left breast cancer. POSTOPERATIVE DIAGNOSIS: Left breast cancer. PROCEDURE PERFORMED: Left total mastectomy, non nipple sparing. SURGEON: Apple Madrigal MD ANESTHESIA: General, intubated. ESTIMATED BLOOD LOSS: Minimal. COMPLICATIONS: None. DESCRIPTION OF PROCEDURE: The patient was made aware of the risks and benefits of the procedure and consented. She was placed in the supine position. After general anesthesia was induced, the patient was intubated. The operative site was prepped and draped in the usual sterile fashion. A vertically-oriented wide excision around the nipple and lower portion of the skin, as demarcated by the plastic surgeon, was made. Using electrocautery, skin flaps were made superior to the clavicle, medial to the sternum, lateral to the latissimus dorsi and inferior to the inframammary fold. Using electrocautery, the breast tissue was taken off the pectoralis muscle laterally to the latissimus dorsi. The specimen was then submitted with a short suture superior and long suture lateral. The wound was copiously irrigated with normal saline. Hemostasis was maintained by electrocautery. The procedure was then turned over to Dr. Barksdale and Dr. Baeza, who performed a reconstruction, and they will dictate that portion separately. APPLE MADRIGAL M.D. [id number]
[2017-08-21] MEDS: ASPIRIN 325 MG TABLET PO SCH ×2 (09:00→10:33)
[2017-08-21] MEDS ORDERED: ONDANSETRON 4 MG/2 ML VIAL IVPUSH PRN (09:23)
[2017-08-21] MEDS ORDERED: HYDROmorphone *PCA* 10MG/50ML DISP.SYRIN PCA SCH (09:23)
[2017-08-21] MEDS ORDERED: METOCLOPRAMIDE HCL INJECTION 10 MG/2 ML VIAL IVPB PRN (09:23)
[2017-08-21] MEDS ORDERED: PROCHLORPERAZINE MALEATE 25 MG SUPP.RECT PR PRN (09:23)
[2017-08-21] MEDS ORDERED: D5-1/2NS+10 MEQ KCL - 1,000 ML IV SCH (09:23)
[2017-08-21] MEDS ORDERED: BUPIVACAINE LIPOSOME/PF (EXPAREL) 266 MG/20 ML VIAL NR ONE (09:23)
[2017-08-21] MEDS ORDERED: ZOLPIDEM TARTRATE 5 MG TABLET PO PRN (09:23)
[2017-08-21] MEDS ORDERED: LACTATED RINGERS SOLUTION 1,000 ML IV SCH (09:23)
--- NOTE | 2017-08-21 09:23 | PN ---
Physical Exam: SUBJECTIVE: Patient seen and examined Patient POD 1 s/p L radical mastectomy with JOE flap reconstruction, complicated by vascular occlusion and followed by reintervention last night. Resting in bed comfortable NAD. afebrile t max 98.8 and hemodynamically stable. ian hugger to surg site. Complains of mild pain alleviated by minimal use of RAILROAD CAR LOADER pump. Denies f/c, n/v, dyspnea, cough, chest pain, and pain, diarrhea, constipation. States she is hungry. KHOA 100, 67, 365 cc serosanguineous fluid. OBJECTIVE: Vital Signs Period Temp Pulse Resp BP Sys/Jones Pulse Ox Last 24 Hr 97.4 F-98.9 F 45-94 14-21 108-146/45-68 99-100 GENERAL: The patient is awake, alert, and fully oriented, in no acute distress. HEAD: Normal with no signs of trauma. EYES: PERRL, extraocular movements intact, sclera anicteric, conjunctiva clear. ENT: moist mucous membranes. NECK: supple no JVD LUNGS: Breath sounds equal, clear to auscultation bilaterally, no wheezes, no crackles, no accessory muscle use. HEART: Regular rate and rhythm, S1, S2 ABDOMEN: Soft, nontender, nondistended, normoactive bowel sounds, clean dressing in place Chest: clean dressing in place on L chest, drains described as above EXTREMITIES: 2+ pulses, warm, well-perfused, no edema. NEUROLOGICAL: Cranial nerves II through XII grossly intact. Normal speech, gait not observed. PSYCH: Normal mood, normal affect. SKIN: Warm, dry Laboratory Results - last 24 hr 08/20/17 08/20/17 08/20/17 19:05 19:29 20:10 WBC 13.6 H RBC 3.74 Hgb 10.5 L Hct 31.3 L MCV 83.8 MCH 28.0 MCHC 33.4 RDW 13.5 Plt Count 241 MPV 7.3 L Neutrophils % Lymphocytes % Monocytes % Eosinophils % Basophils % PT with INR INR PTT (Actin FS) Sodium Potassium Chloride Carbon Dioxide Anion Gap BUN Creatinine Random Glucose Calcium Blood Type O POSITIVE O POSITIVE Antibody Screen Negative Crossmatch See Detail 08/20/17 08/21/17 08/21/17 20:10 05:00 05:00 WBC 9.4 D RBC 3.68 Hgb 10.4 L Hct 31.9 L MCV 86.7 MCH 28.4 MCHC 32.7 RDW 13.8 Plt Count 181 D MPV 7.0 L Neutrophils % 84.8 H Lymphocytes % 6.5 L Monocytes % 8.6 Eosinophils % 0.0 Basophils % 0.1 PT with INR 14.60 H INR 1.32 H PTT (Actin FS) 29.0 Sodium 138 Potassium 4.1 Chloride 105 Carbon Dioxide 27 Anion Gap 6 L BUN 10 Creatinine 0.7 Random Glucose 200 H Calcium 8.0 L Blood Type Antibody Screen Crossmatch Active Medications Generic Name Dose Route Start Last Admin Trade Name Freq PRN Reason Stop Dose Admin Aspirin 325 mg 08/21/17 09:00 Asa - PO DAILY ERI Fentanyl 25 mcg 08/20/17 18:41 08/20/17 19:10 Sublimaze Injection - IVPUSH 08/23/17 18:42 25 mcg [id number] PRN Administration PAIN Heparin Sodium (Porcine) 5,000 unit 08/20/17 22:00 08/20/17 23:18 Heparin - SQ 5,000 unit BID ERI Administration Hydromorphone HCl 10 mg 08/20/17 20:02 Dilaudid Strategic Marketing Leader - RAILROAD CAR LOADER 08/27/17 18:34 RAILROAD CAR LOADER ON LICENSE OF [facility] Protocol Lactated Ringer's 1,000 mls @ 75 mls/hr 08/20/17 18:45 Lactated Ringers Solution IV ASDIR ERI Cefazolin Sodium 1 gm/ 50 mls @ 100 mls/hr 08/21/17 02:00 08/21/17 01:10 Dextrose IVPB 100 mls/hr Q8H-IV ERI Administration Potassium Chloride/Dextrose/Sod Cl 1,000 mls @ 150 mls/hr 08/20/17 18:45 23:00 D5-1/2ns+10 Meq Kcl - IV 08/21/17 18:37 150 mls/hr ASDIR ERI Administration Heparin Sodium/Dextrose 500 mls @ 6 mls/hr 08/21/17 08:45 Heparin Infusion - IVPB TITR ERI Protocol 300 UNITS/HR Metoclopramide HCl 10 mg 08/20/17 18:37 Reglan Injection - IVPB Q6H PRN NAUSEA AND/OR VOMITING Ondansetron HCl 4 mg 08/20/17 18:37 Zofran Injection IVPUSH Q6H PRN NAUSEA AND/OR VOMITING Prochlorperazine Maleate 25 mg 08/20/17 18:37 Compazine Suppository - [place] Q12H PRN NAUSEA AND/OR VOMITING Zolpidem Tartrate 5 mg 08/20/17 18:37 Ambien - PO 08/23/17 18:37 HS PRN INSOMNIA ASSESSMENT/PLAN: 37 yo F with PMH of 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 Neuro -AAOx3 Pulm -stable; extubated last night post op -supplemental NC O2 prn CV -hemodynamically stable -s/p 2 U postop transfusion due to blood loss, Hgb 10.4 Onc L breast CA with Local lymphatic spread -POD 1 s/p L radical mastectomy with JOE flap reconstruction -monitor I/O, KHOA drain output -zofran for nausea -IV maintenance fluid hydration -Hrp gtt per surgery -cefazolin per surgery -Dilaudid RAILROAD CAR LOADER pain mgmt -vascular patency to flap monitoring per surgery GI -diet per davis FEN D5 1/2 NS 20 K @ 150 lytes stable diet per davis Dispo: monitor in ICU. Problem List - Problems (1) Breast cancer, left breast Code(s): C50.912 - MALIGNANT NEOPLASM OF UNSPECIFIED SITE OF LEFT FEMALE BREAST Qualifiers: Breast location: upper outer quadrant of breast Patient sex: female Qualified Code(s): C50.412 - Malignant neoplasm of upper-outer quadrant of left female breast; Z17.0 - Estrogen receptor positive status [ER+] (2) FHx: mastectomy Code(s): Z84.89 - FAMILY HISTORY OF OTHER SPECIFIED CONDITIONS (3) Status post transverse rectus abdominis muscle flap breast reconstruction Code(s): Z98.890 - OTHER SPECIFIED POSTPROCEDURAL STATES Visit type - Emergency Visit Emergency Visit: No - New Patient This patient is new to me today: Yes Date on this admission: 08/21/17 - Critical Care Critical Care patient: Yes Total Critical Care Time (in minutes): 35 Critical Care Statement: The care of this patient involved high complexity decision making to prevent further life threatening deterioration of the patient 's condition and/or to evaluate & treat vital organ system(s) failure or risk of failure. - Discharge Referral Referred to [facility] No
[2017-08-21] MEDS ORDERED: KETOROLAC TROMETHAMINE 30 MG/1 ML VIAL IVPB PRN (09:50)
[2017-08-21] MEDS ORDERED: FLU VACCINE QUAD 60 MCG/0.5 ML (MDV 17-18) IM ONE (10:00)
[2017-08-21] MEDS: CEFAZOLIN (PRE-DOCKED) 50 ML IVPB SCH ×2 (10:34→19:00)
[2017-08-21] MEDS: KETOROLAC TROMETHAMINE 30 MG/1 ML VIAL IVPB SCH ×2 (11:55→22:03)
--- NOTE | 2017-08-21 11:59 | PN ---
Teaching Attending Note Name of Resident: Zoraida Tolbert ATTENDING PHYSICIAN STATEMENT I saw and evaluated the patient. I reviewed the resident's note and discussed the case with the resident. I agree with the resident's findings and plan as documented. SUBJECTIVE: Pt seen and examined in the ICU. Overnight events noted, Taken back to OR for down flap, now with positive dopplers. Pain adequately controlled. Denies shortness of breath or chest pain. No fevers or chills. OBJECTIVE: Last Vital Signs Temp Pulse Resp BP Pulse Ox 99.1 F 102 H 22 124/63 100 08/21/17 10:00 08/21/17 10:00 08/21/17 10:00 08/21/17 10:00 08/21/17 08:50 Intake & Output 08/18/17 08/19/17 08/20/17 08/21/17 23:59 23:59 23:59 23:59 Intake Total 9200 3300 Output Total 4025 1937 Balance 5175 1363 Gen: NAD at rest Heart: tachycardic, regular Lung: decreased breath sounds at the bases Chest: dressings intact, +drain with sanguinous drainage Abd: soft, appropriately tender, no rebound, incisions clean Ext: no edema CBC, BMP 08/21/17 05:00 08/20/17 20:10 Active Medications Aspirin (Asa -) 325 mg PO DAILY [facility] Last Admin: 08/21/17 10:33 Dose: Not Given Hydromorphone HCl (Dilaudid Arbitrator -) 10 mg METAL TILE SETTER METAL TILE SETTER ERI PRN Reason: Protocol Stop: 08/27/17 18:34 Last Admin: 08/21/17 10:00 Dose: 10 mg Heparin Sodium/Dextrose (Heparin Infusion -) 500 mls @ 10 mls/hr IVPB TITR ERI ; 500 UNITS/HR PRN Reason: Protocol Last Admin: 08/21/17 08:50 Dose: 10 mls/hr Potassium Chloride/Dextrose/Sod Cl (D5-1/2ns+10 Meq Kcl -) 1,000 mls @ 150 mls/ hr IV ASDIR ERI Stop: 08/21/17 18:37 Last Admin: 08/21/17 09:44 Dose: 150 mls/hr Cefazolin Sodium (Ancef 1gm Ivpb (Pre-Docked)) 50 mls @ 100 mls/hr IVPB Q8H-IV ERI Last Admin: 08/21/17 10:34 Dose: 100 mls/hr Ketorolac Tromethamine (Toradol Injection -) 30 mg IVPB Q8H ERI Stop: 08/26/17 09:49 Metoclopramide HCl (Reglan Injection -) 10 mg IVPB Q6H PRN PRN Reason: NAUSEA AND/OR VOMITING Ondansetron HCl (Zofran Injection) 4 mg IVPUSH Q6H PRN PRN Reason: NAUSEA AND/OR VOMITING Prochlorperazine Maleate (Compazine Suppository -) 25 mg [place] Q12H PRN PRN Reason: NAUSEA AND/OR VOMITING Zolpidem Tartrate (Ambien -) 5 mg PO HS PRN PRN Reason: INSOMNIA Stop: 08/23/17 18:37 ASSESSMENT AND PLAN: L Breast Ca s/p L Total Mastectomy/Reconstruction with JOE flap Anemia - monitor flap - pain control - monitor H/H - transfuse as needed - heparin gtt per surgery - monitor drain output - IVF - PO per surgery - DVT prophylaxis
[2017-08-21 13:03] LABS: BASOPHIL 0.3 % (0-2.0); MCHC 33.8 g/dl (32.0-36.0); MEAN CELL VOLUME 82.9 fl (80-96); MEAN PLT VOLUME 6.6 fl (7.5-11.1); NEUTROPHILS 82.3 % (42.8-82.8); PLATELET COUNT 179 K/MM3 (134-434); RDW 13.7 % (11.6-15.6); WHITE BLOOD COUNT 8.8 K/mm3 (4.0-10.0)
[2017-08-21 13:20] LABS: INR 1.23 (0.82-1.09); PROTHROMBIN TIME (PATIENT) 13.6 SEC (9.98-11.88)
[2017-08-21 13:28] LABS: ALBUMIN 1.9 g/dl (3.4-5.0); ANION GAP 8 (8-16); CALCIUM 7.4 mg/dL (8.5-10.1); CO2 26 mmol/L (21-32); CREATININE 0.7 mg/dL (0.55-1.02); GLUCOSE,RANDOM 128 mg/dL (74-106); SGOT/AST 20 U/L (15-37); SGPT/ALT 21 U/L (12-78)
[2017-08-21 13:30] LABS: ALK PHOS 62 U/L (45-117); BILIRUBIN,TOTAL 0.2 mg/dL (0.2-1.0); TOT PROT 4.2 g/dl (6.4-8.2)
[2017-08-21 18:15] LABS: MCH 28.3 pg (25.7-33.7); MCHC 34.3 g/dl (32.0-36.0); MEAN CELL VOLUME 82.7 fl (80-96); PLATELET COUNT 177 K/MM3 (134-434); RDW 13.9 % (11.6-15.6)
[2017-08-21] MEDS: D5-1/2NS+10 MEQ KCL - 1,000 ML IV SCH (19:00)
--- NOTE | 2017-08-21 20:07 | OPR ---
DATE OF OPERATION: 08/21/17 ATTENDING SURGEON: CO-SURGEON: INTERIOR DESIGN COORDINATOR: PREOPERATIVE DIAGNOSIS: POSTOPERATIVE DIAGNOSIS: PROCEDURE PERFORMED: 1. Bilateral breast reconstruction with JOE (deep inferior epigastric perforators) flap. 2. Bilateral rib resection. 3. Bilateral ligation of SIEV (superficial inferior epigastric vein). 4. Bilateral intercostal nerve block for postoperative pain relief. 5. Bilateral transversus abdominis plane block for postoperative pain relief. COMPLICATIONS: None. ESTIMATED BLOOD LOSS: 150 mL DESCRIPTION OF PROCEDURE: The patient was brought to the OR in conjunction with , the breast surgeon. Please see her operative note for details of her portion of the procedure. A bilateral mastectomy and a sentinel node dissection was performed by . Simultaneously , Dr. Barksdale and Dr. Baeza initiated the breast reconstruction at the abdomen. At the abdomen the previously marked ellipse of tissue from just above the umbilicus down to the pubic hairline was incised using a 15 blade scalpel. Dissection was carried down through the subcutaneous tissues using electrocautery, beveling away from the flap in order to increase the volume of the flap. At the right side, 6 cm off the midline, the superficial inferior epigastric artery and vein were identified. They were meticulously freed of all surrounding tissue, and they were traced down to their origin in the groin where they were ligated and divided and kept in continuity with the flap in case they were needed later in the flap for additional inflow or outflow to the flap. At the left side, 6 cm off the midline the left superficial inferior epigastric artery and vein were identified. Using microsurgical technique, they were meticulously dissected down to their origin in the groin where they were ligated and divided. They were kept in continuity with the left JOE flap in case they were needed later in the case for additional inflow or outflow to the flap. Attention was first paid to harvest of the right JOE flap. The right JOE flap was elevated in a lateral to medial direction using electrocautery until the lateral edge of the rectus abdominis sheath was encountered. At this point, meticulous dissection continued using bipolar cautery, and the dominant perforators to this side, that were identified preoperatively on the MRA, were identified and preserved and kept in continuity with the flap. The anterior rectus fascia was then incised in a superior and inferior direction, and a small cuff of fascia, less than 1 cm, was kept in continuity with the perforators and freed from the surrounding tissue. The perforators were then dissected free of all surrounding tissue. The rectus muscle was atraumatically split in line with its longitudinal fibers, and the perforators were followed down through the rectus muscle to the lateral main branch of the deep inferior epigastric artery. Two perforators were kept in continuity with the flap and dissected in this technique. The main pedicle was then traced back to its origin in the groin where all small branches along the way were clipped and divided. at the groin the takeoff of the deep inferior epigastric artery and vein were identified. On the right side, there was noted to be one large deep inferior epigastric artery and two accompanying large venae comitantes. A single green clamp was applied to the pedicle, medium automatic clips were placed around the deep inferior epigastric artery and two accompanying veins. They were then divided. The flap was weighed and noted to weigh gm. Simultaneously, at the left chest, exposure of the internal mammary artery and vein was performed. The mastectomy pocket was thoroughly irrigated, all points of bleeding were stopped with electrocautery. The pectoralis major muscle was then divided in line with its longitudinal fibers overlying the third rib. Gelpi retractors were placed for exposure. The third rib was scored using electrocautery, and then, the perichondrium surrounding the cartilaginous portion of the third rib was elevated using a periosteal elevator. Then, 2 cm of cartilaginous portion of the rib were removed using a rongeur, and under loupe magnification, the posterior perichondrium was elevated using microsurgical technique and bipolar cautery. Meticulous dissection was performed, and the internal mammary artery and vein were identified. The internal mammary artery and vein were freed of all surrounding tissue for a total length of 2 cm in order to allow microsurgical anastomoses. The operating microscope was brought into position on the left side. The right JOE flap was rotated 180 degrees. It was then placed at the right chest. It was sutured in position using 2-0 Vicryl sutures for temporary securing. The pedicle was placed in alignment with the internal mammary artery and vein. Under the operating microscope, the internal mammary vein had a single green clip applied proximally and a single green clip applied distally, and it was divided in the middle using straight microscissors. The vein lumen was irrigated and measured, and it was noted that a -mm gas plant specialist would fit well upon the internal mammary vein. The two veins of the flap pedicle were measured, and it was noted that -mm gas plant specialist would fit well upon each of these veins. The coupling device was loaded with a ____-mm gas plant specialist, which was lowered into the operative field under the operating microscope. The antegrade pedicle vein was brought up and through the coupling device. It was everted over the coupling spikes. It was secured in position using the J-Hole. The lumen was irrigated with heparinized saline solution, and the gas plant specialist was lowered adjacent to the antegrade portion of the internal mammary vein, the cut end of which was brought up and through the coupling device, everted over the coupling spikes, secured in position using the J-Hole. The lumen was then irrigated with heparinized saline solution. It was noted to be in good position and free of debris. The gas plant specialist was closed, creating a secured couple anastomosis. The single green clamp was removed, and there was noted to be excellent flow across the anastomosis. Attention was then paid to the retrograde vein. The veins were measured and a mm gas plant specialist was selected. The second vein of the pedicle was then brought up and through a mm gas plant specialist. It was everted over the coupling spikes. It was secured in position using the J-Hole. The gas plant specialist was then lowered adjacent to the retrograde internal mammary vein, the cut end of which was brought up and through the coupling device, everted over the coupling spikes, and secured in position using the J-Hole. The lumens were irrigated, noted to be free of debris and in good position. The gas plant specialist was closed, and a secured couple anastomosis was created. The single green clamp was removed, and there was noted to be excellent flow across the anastomosis. Attention was then paid to the arterial anastomosis. The pedicle artery was placed in alignment with the internal mammary artery. The internal mammary artery had a single green clamp applied proximally, and a medium automatic green clip applied distally, and it was divided using a straight microscissor. The lumen was irrigated and noted to be free of debris and healthy in appearance. The arterial artery of the flap was placed in alignment with the internal mammary artery, and a hand-sewn anastomosis was performed. The 8-0 nylon was used in an interrupted fashion to perform the hand-sewn anastomosis. The single green clamp was removed, and there was noted to be strong healthier flow across the anastomosis with a very strong audible signal using the hand-held Doppler. At this point, an implantable Doppler was placed for monitoring of the flap postoperatively. Using the Johnson dissector, a small window was created around the pedicle artery. The cuff of the implantable Doppler was passed around this. It was then secured in position using MicroClips and hooked to the Doppler box where there was noted to be a strong bounding signal within the pedicle artery. This was left attached to the Doppler box and monitored throughout the entirety of the rest of the case, and there was excellent flow throughout the entire rest of this case. The operating microscope was removed. Flap was gently placed within the mastectomy pocket while monitoring the entire time. There was noted to be excellent shape to the flap and the skin was temporarily closed using skin staplers, and attention was paid to reconstruction of the contralateral side. At the left abdomen, the left JOE flap was elevated in a lateral to medial direction using electrocautery until the lateral edge of the rectus abdominis muscle was encountered. Then, dissection continued using bipolar cautery in a meticulous fashion using loupe magnification, and the two dominant perforators identified on the preoperative MRA were encountered and preserved. They were circumferentially freed. An incision was made in the anterior rectus fascia in a superior and inferior direction. A small cuff of fascia was kept adherent to the perforators, approximately 1 cm in size. The perforators were followed down into the rectus muscle freeing all small branches as necessary. The rectus muscle was atraumatically split using Gelpi retractors, and the perforators were traced down to the left deep inferior epigastric artery pedicle. The pedicle was then traced down to its origin in the groin, clipping and dividing all small branches as necessary. At the groin, there was noted to be one large artery and two large venae comitantes. These were clipped with the medium automatic clip electroencephalographic technician and divided, and the flap was weighed and noted to weigh approximately gm. Simultaneous to this dissection, at the right chest, exposure of the internal mammary artery and vein was performed. The mastectomy pocket was irrigated, all points of bleeding were stopped with electrocautery. The pectoralis major muscle was divided overlying the third rib in line with its longitudinal fibers. The underlying third rib was exposed. The perichondrium was scored using electrocautery and then freed using a periosteal elevator. Then, 2 cm of cartilaginous portion of the rib were resected using a large rongeur. Under loupe magnification, the posterior perichondrium was elevated and the internal mammary artery and vein were identified. All small branches were divided, and the internal mammary artery and vein were exposed for a length of 2 cm in order to allow microsurgical anastomosis. The left JOE flap was rotated 180 degrees. It was placed at the left chest and temporarily secured in position using 2-0 Vicryl sutures. The pedicle of the flap was placed in alignment with the internal mammary artery and vein. The operating microscope was brought into position. Under the operating microscope, attention was first paid to the venous anastomosis. The internal mammary vein had a clip applied distally and a single green clamp applied Proximally and distally. It was then divided using straight microscissors. The lumen was measured, and noted to be mm. The pedicle vein was measured and noted to be mm. A coupling device was loaded with a -mm gas plant specialist. It was lowered into the operative field under the operating microscope. The cut end of the pedicle vein was brought up and through the gas plant specialist, everted over the coupling spike, secured in position using the J-Hole. The lumen was irrigated with heparinized saline solution, and it was noted to be in good potion and free of all debris. The gas plant specialist was lowered adjacent to the internal mammary vein antegrade portion, the cut end of which was brought up and through the coupling device, everted over the coupling spikes, secured in position using the J-Hole, irrigated with heparinized saline solution, noted to be free of debris and in good position. The gas plant specialist was closed, creating a secured couple anastomosis. The single green clamp was removed, and there was noted to be excellent flow across the venous anastomosis. Attention was then paid to the retrograde vein. The veins were measured and a mm gas plant specialist was selected. The second vein of the pedicle was then brought up and through a mm gas plant specialist. It was everted over the coupling spikes. It was secured in position using the J-Hole. The gas plant specialist was then lowered adjacent to the retrograde internal mammary vein, the cut end of which was brought up and through the coupling device, everted over the coupling spikes, and secured in position using the J-Hole. The lumens were irrigated, noted to be free of debris and in good position. The gas plant specialist was closed, and a secured couple anastomosis was created. The single green clamp was removed, and there was noted to be excellent flow across the anastomosis. Attention was then paid to the arterial anastomosis. The internal mammary artery had a medium clip applied distally, a single green clamp applied proximally. It was then divided using straight microscissors. The lumen was irrigated and noted to be free of debris and healthy in appearance. The pedicle artery was placed in alignment with the internal mammary artery, and a hand-sewn anastomosis was performed using an 8-0 nylon suture in an interrupted fashion. After completion of the hand-sewn anastomosis, the single green clamp was removed, and there was noted to be excellent strong pulsatile flow across the arterial anastomosis and a bounding pedicle. The pedicle was interrogated using the hand-held Doppler. There was noted to be strong, healthy pulsatile flow. For postoperative monitoring, the decision was made to place an implantable Doppler. A small window was created around the pedicle artery using the Johnson dissector. The [employer] implantable Doppler cuff was passed around this and secured in position using MicroClips. The Doppler was hooked to the Doppler box, and it was noted to have a strong pulsatile signal. This was monitored throughout the entirety of the rest of the case. The operating microscope was then removed from the field. The flap was gently placed within the mastectomy cavity. The skin incisions were temporarily closed using skin staplers, and there was noted to be excellent shape and symmetry between the left and right breasts. Attention was then paid to closure of the left and right side. The left and right JOE flaps were appropriately shaped, recreating a beautiful natural lateral sweep to the breasts and a sharp inframammary fold. The skin paddle of the flaps was marked to replace the areola in a circular pattern. This was preserved. The rest of the skin along the flaps was deepithelialized using facelift scissors. The flaps were then inset in the appropriate position, and skin incisions were closed in multiple layers with 3-0 PDS as the deep layer and 4-0 Monocryl as the final running subcuticular closure. At the left and right side, prior to closure, an intercostalnerve block was performed using 0.25% Marcaine, 15 mL of 0.25% Marcaine was used on the left and 15 mL was used on the right, injecting small amounts of Marcaine adjacent to the intercostal nerve and rib space 2-7 in order to provide Postoperative pain relief. Prior to closing the incisions, a No. 19 Curt drain was placed on the left and right side and brought out through a small separate stab wound incision. Attention was then paid to closure of the abdomen. The anterior rectus fascia including both the anterior layer and posterior layer of anterior rectus fascia was reapproximated using 0 PDS sutures in a figure-of-8 fashion with one suture placed every centimeter. After reapproximating the fascia, this was then overrun with a 0 V-Loc PDS suture in multiple layers in order to plicate and strengthen the closure. In the epigastric area, there was noted to be a small amount of bulging and a central plication was performed using a 0 V-Loc suture in a running fashion. The patient had an excellent shape to the abdomen after closure of the fascia, and the skin and subcutaneous flap was advanced in the inferior direction. A low transverse incision was then closed in multiple layers with 0 PDS as the first layer and 3-0 V-Loc as the final running subcuticular closure. The umbilicus was brought up to and out through an inverted V-shaped incision and inset using 4-0 Monocryl. At the abdomen prior to closure, a transversus abdominis plane block was performed at the left and right side using 0.25% Marcaine, 15 mL of Marcaine was introduced through multiple small injections in the transversus abdominis plane on the left and right side in order to provide postoperative pain relief; 15 mL of Marcaine was used on the left side, and 15 mL of Marcaine was used on the right side. Also, at the abdomen, a left and right 19 curt abdominal drain was placed prior to closure. After closure of the incisions, sterile dressings were applied of 0.5-inch Steri-Strips to the incisions. The drains were placed to bulb suction,and the patient was awakened from anesthesia in stable condition. She tolerated the procedure well and there were no complications.
--- NOTE | 2017-08-21 20:13 | PN ---
Progress Note (short form) - Note Progress Note: Patient stable now 12 hours post take back for anastomotic failure. Currently the flap is well perfused with good audible flow signals and pink color to skin paddle. There is no hematoma. Slightly tachycardic at 110, but tolerating. Serial HCT's have been stable at 30 and her color is pink. PTT slightly above normal with heparin GTT VSS AF UOP 40/hr KHOA's are pure serous on abdomen, serosanguinous on breast with decreasing output. Continue bedrest, IVF, ASA, toradol, and heparin overnight. Continue ian- hugger Will follow HCT and PTT in AM. No changes in management for now.
[2017-08-22] MEDS ORDERED: ACETAMINOPHEN 325 MG TABLET (FP) ONE (01:08)
[2017-08-22] MEDS ORDERED: PT OWN MED DRAWER 7, Y5N ONE (01:14)
[2017-08-22] MEDS ORDERED: ACETAMINOPHEN 325 MG TABLET (FP) PO ONE (01:15)
[2017-08-22] MEDS: CEFAZOLIN (PRE-DOCKED) 50 ML IVPB SCH ×3 (01:15→17:38)
[2017-08-22] MEDS: KETOROLAC TROMETHAMINE 30 MG/1 ML VIAL IVPB SCH ×3 (03:32→18:57)
[2017-08-22] MEDS: D5-1/2NS+10 MEQ KCL - 1,000 ML IV SCH ×2 (04:00→11:00)
[2017-08-22 06:21] LABS: MCH 28.6 pg (25.7-33.7); MCHC 34.5 g/dl (32.0-36.0); MEAN CELL VOLUME 82.9 fl (80-96); MEAN PLT VOLUME 6.8 fl (7.5-11.1); PLATELET COUNT 174 K/MM3 (134-434); RDW 13.6 % (11.6-15.6); WHITE BLOOD COUNT 7.2 K/mm3 (4.0-10.0)
[2017-08-22 07:09] LABS: ANION GAP 7 (8-16); CALCIUM 7.3 mg/dL (8.5-10.1); CO2 28 mmol/L (21-32); GLUCOSE,RANDOM 121 mg/dL (74-106)
--- NOTE | 2017-08-22 07:09 | PN ---
Progress Note (short form) - Note Progress Note: 24 hours post flap revision. VSS AF, tachycardia improved to 90's single temp 101.5 overnight HCT stable at 29, PTT at 29 UOP 1300 overnight KHOA's slowing and thinning Pain well controlled using IS well Flap is warm and pink with good slow refill, arterial flow signals strong No sign of infection Continue current treatment with heparin gtt, toradol, ASA Continue IVF at 150/hr, anticipate diuresis today, will leave aponte and continue bedrest d/c ian hamilton If no changes plan OOB next shift
[2017-08-22] MEDS: ASPIRIN 325 MG TABLET PO SCH ×2 (07:10→09:48)
[2017-08-22 07:11] LABS: CREATININE 0.8 mg/dL (0.55-1.02); PHOSPHOROUS 2.1 mg/dL (2.5-4.9)
--- NOTE | 2017-08-22 08:46 | PN ---
Progress Note, Physician Chief Complaint: S/P left mastectomy with JOE reconstruction POD#2, revision of JOE POD#1 History of Present Illness: Patient is seen at the bedside and reports good pain control. She is tolerating po well and without any complaints at this time. - Current Medication List Current Medications: Active Medications Aspirin (Asa -) 325 mg PO DAILY [facility] Last Admin: 08/22/17 07:10 Dose: 325 mg Hydromorphone HCl (Dilaudid Geophysical Laboratory Chief -) 10 mg CASTING OPERATOR CASTING OPERATOR ERI PRN Reason: Protocol Stop: 08/27/17 18:34 Last Admin: 08/21/17 10:00 Dose: 10 mg Heparin Sodium/Dextrose (Heparin Infusion -) 500 mls @ 10 mls/hr IVPB TITR ERI ; 500 UNITS/HR PRN Reason: Protocol Last Admin: 08/21/17 08:50 Dose: 10 mls/hr Cefazolin Sodium (Ancef 1gm Ivpb (Pre-Docked)) 50 mls @ 100 mls/hr IVPB Q8H-IV ERI Last Admin: 08/22/17 01:15 Dose: 100 mls/hr Potassium Chloride/Dextrose/Sod Cl (D5-1/2ns+10 Meq Kcl -) 1,000 mls @ 150 mls/ hr IV ASDIR ERI Last Admin: 08/22/17 04:00 Dose: 150 mls/hr Ketorolac Tromethamine (Toradol Injection -) 30 mg IVPB Q8H [facility] Stop: 08/26/17 09:49 Last Admin: 08/22/17 03:32 Dose: 30 mg Metoclopramide HCl (Reglan Injection -) 10 mg IVPB Q6H PRN PRN Reason: NAUSEA AND/OR VOMITING Ondansetron HCl (Zofran Injection) 4 mg IVPUSH Q6H PRN PRN Reason: NAUSEA AND/OR VOMITING Prochlorperazine Maleate (Compazine Suppository -) 25 mg WA Q12H PRN PRN Reason: NAUSEA AND/OR VOMITING Zolpidem Tartrate (Ambien -) 5 mg PO HS PRN PRN Reason: INSOMNIA Stop: 08/23/17 18:37 - Objective Vital Signs: Vital Signs Temperature 99.6 F 08/22/17 07:00 Pulse Rate 110 H 08/22/17 08:00 Respiratory Rate 16 08/22/17 08:00 Blood Pressure 106/58 08/22/17 08:00 O2 Sat by Pulse Oximetry (%) 97 08/21/17 22:00 Constitutional: Yes: Well Nourished, Calm Genitourinary: Yes: Alves Present Breast(s): Yes: Other (Left breast flap with a strong arterial pulse. The flaps are pink and warm. Steristrips intact without erythema or discharge. JPs intact. Abdominal incision C/D/I. KHOA with serosanginous discharge.) Labs: CBC, BMP 08/22/17 05:55 08/22/17 05:55 INR, PTT INR 1.23 (0.82-1.09) H 08/21/17 12:45 Problem List - Problems (1) Breast cancer, left breast Code(s): C50.912 - MALIGNANT NEOPLASM OF UNSPECIFIED SITE OF LEFT FEMALE BREAST Qualifiers: Breast location: upper outer quadrant of breast Patient sex: female Qualified Code(s): C50.412 - Malignant neoplasm of upper-outer quadrant of left female breast; Z17.0 - Estrogen receptor positive status [ER+] Assessment/Plan Plan: Continue current tx regime. OOB as per Dr. Barksdale. Monitor H/H and coags while on heparin.
[2017-08-22] MEDS ORDERED: ACETAMINOPHEN 500 MG TABLET (FP) PO PRN (08:55)
--- NOTE | 2017-08-22 09:05 | PN ---
Progress Note (short form) - Note Progress Note: Anesthesia POD#1 S/P Re-exploration of reconstruction left Breast under GA and Dilaudid PENSION ADVISER VSS,feels better,not using IV PENSION ADVISER much.Pain is bearable. Oral pain meds discussed with the patient, percocet is well tolerated. Going to write it. A/P Discontinue the IV PENSION ADVISER to oral percocet. Zoë West MD.
[2017-08-22] MEDS ORDERED: oxyCODONE HCL 5 MG TABLET PO PRN (09:17)
[2017-08-22] MEDS ORDERED: ACETAMINOPHEN 325 MG TABLET (FP) PO PRN (09:18)
[2017-08-22] MEDS: HEPARIN INFUSION - 500 ML IVPB SCH (09:43)
--- NOTE | 2017-08-22 11:58 | PN ---
Teaching Attending Note Name of Resident: Aureliano Andrews ATTENDING PHYSICIAN STATEMENT I saw and evaluated the patient. I reviewed the resident's note and discussed the case with the resident. I agree with the resident's findings and plan as documented. SUBJECTIVE: Pt seen and examined in the ICU. Pain controlled. Febrile overnight. Denies shortness of breath or chest pain. Dopplers intact. OBJECTIVE: Last Vital Signs Temp Pulse Resp BP Pulse Ox 99 F 96 H 16 95/50 97 08/22/17 11:00 08/22/17 11:00 08/22/17 11:00 08/22/17 11:00 08/21/17 22:00 Intake & Output 08/19/17 08/20/17 08/21/17 08/22/17 23:59 23:59 23:59 23:59 Intake Total 9200 6550 2060 Output Total 4025 4452 640 Balance 5175 2098 1420 Gen: NAD at rest Heart: RRR Lung: decreased breath sounds at the bases Chest: +drains with serosanguinous drainage Abd: soft, nontender Ext: no edema CBC, BMP 08/22/17 05:55 08/22/17 05:55 Active Medications Acetaminophen (Tylenol -) 650 mg PO Q4H PRN PRN Reason: PAIN 6-10 Aspirin (Asa -) 325 mg PO DAILY ERI Last Admin: 08/22/17 09:48 Dose: Not Given Heparin Sodium/Dextrose (Heparin Infusion -) 500 mls @ 10 mls/hr IVPB TITR ERI ; 500 UNITS/HR PRN Reason: Protocol Last Admin: 08/22/17 09:43 Dose: 10 mls/hr Cefazolin Sodium (Ancef 1gm Ivpb (Pre-Docked)) 50 mls @ 100 mls/hr IVPB Q8H-IV ERI Last Admin: 08/22/17 09:49 Dose: 100 mls/hr Potassium Chloride/Dextrose/Sod Cl (D5-1/2ns+10 Meq Kcl -) 1,000 mls @ 150 mls/ hr IV ASDIR ERI Last Admin: 08/22/17 04:00 Dose: 150 mls/hr Ketorolac Tromethamine (Toradol Injection -) 30 mg IVPB Q8H ERI Stop: 08/26/17 09:49 Last Admin: 08/22/17 03:32 Dose: 30 mg Metoclopramide HCl (Reglan Injection -) 10 mg IVPB Q6H PRN PRN Reason: NAUSEA AND/OR VOMITING Ondansetron HCl (Zofran Injection) 4 mg IVPUSH Q6H PRN PRN Reason: NAUSEA AND/OR VOMITING Oxycodone HCl (Roxicodone -) 10 mg PO Q4H PRN PRN Reason: PAIN 6-10 Prochlorperazine Maleate (Compazine Suppository -) 25 mg [place] Q12H PRN PRN Reason: NAUSEA AND/OR VOMITING Zolpidem Tartrate (Ambien -) 5 mg PO HS PRN PRN Reason: INSOMNIA Stop: 08/23/17 18:37 ASSESSMENT AND PLAN: L Breast Ca s/p L Total Mastectomy/Reconstruction with JOE flap Anemia - monitor flap - pain control - monitor H/H - transfuse as needed - heparin gtt per surgery - monitor drain output - IVF - PO as tolerated - OOB when ok with surgery - DVT prophylaxis
--- NOTE | 2017-08-22 12:37 | PN ---
Physical Exam: SUBJECTIVE: 37 yo F with h/o left breast cancer s/p left total mastectomy with reconstruction and alaina flap here for post op observation. Overnight pain is well controlled with Toradol, Oxycodone, and Tylenol. Patient with one episode of non bilious, emesis yesterday evening that has since resolved. One episode of isolated oral temp of 101.5 overnight that has since resolved. Patient denies N/V, chills, abdominal pain, SOB, dysuria or any complaints. OBJECTIVE: Vital Signs Period Temp Pulse Resp BP Sys/Jones Pulse Ox Last 24 Hr 98.9 F-101.5 F 92-119 15-21 95-122/50-86 97-97 GENERAL: Adequate serosanguinous drainage from KHOA sites at left upper breast , abdominal LLQ and RLQ. The patient is awake, alert, and fully oriented, in no acute distress. NECK: Trachea midline, full range of motion, supple. LUNGS: Breath sounds equal, clear to auscultation bilaterally, no wheezes, no crackles, no accessory muscle use. Chest: Adequate doppler of flap reconstruction site. Flap is warm, well perfused , with no s/s of infection. absent drainage or discharge. HEART: Regular rate and rhythm, S1, S2 without murmur, rub or gallop. ABDOMEN: Soft, nontender, nondistended, normoactive bowel sounds, no guarding, no rebound, no hepatosplenomegaly, no masses. EXTREMITIES: 2+ pulses, warm, well-perfused, no edema. PSYCH: Normal mood, normal affect. SKIN: Warm, dry, normal turgor, no rashes or lesions noted Laboratory Results - last 24 hr 08/21/17 08/21/17 08/21/17 12:45 12:45 12:45 WBC 8.8 RBC 3.85 Hgb 10.8 Hct 31.9 L MCV 82.9 MCH 28.0 MCHC 33.8 RDW 13.7 Plt Count 179 MPV 6.6 L Neutrophils % 82.3 Lymphocytes % 7.6 L Monocytes % 9.8 Eosinophils % 0.0 Basophils % 0.3 PT with INR 13.60 H INR 1.23 H PTT (Actin FS) 31.7 Sodium Potassium Chloride Carbon Dioxide Anion Gap BUN Creatinine Creat Clearance w eGFR Random Glucose Calcium Phosphorus Magnesium Total Bilirubin AST ALT Alkaline Phosphatase Total Protein Albumin 08/21/17 08/21/17 08/22/17 12:45 17:00 05:55 WBC 7.0 7.2 RBC 3.60 3.42 L Hgb 10.2 L 9.8 L Hct 29.8 L 28.4 L MCV 82.7 82.9 MCH 28.3 28.6 MCHC 34.3 34.5 RDW 13.9 13.6 Plt Count 177 174 MPV 7.0 L 6.8 L Neutrophils % Lymphocytes % Monocytes % Eosinophils % Basophils % PT with INR INR PTT (Actin FS) Sodium 138 Potassium 3.8 Chloride 104 Carbon Dioxide 26 Anion Gap 8 BUN 10 Creatinine 0.7 Creat Clearance w eGFR > 60 Random Glucose 128 H D Calcium 7.4 L Phosphorus Magnesium Total Bilirubin 0.2 AST 20 ALT 21 Alkaline Phosphatase 62 Total Protein 4.2 L Albumin 1.9 L 08/22/17 08/22/17 08/22/17 05:55 05:55 08:50 WBC RBC Hgb Hct MCV MCH MCHC RDW Plt Count MPV Neutrophils % Lymphocytes % Monocytes % Eosinophils % Basophils % PT with INR INR PTT (Actin FS) 29.3 Sodium 136 Potassium 4.0 Chloride 101 Carbon Dioxide 28 Anion Gap 7 L BUN 10 Creatinine 0.8 Creat Clearance w eGFR Random Glucose 121 H Calcium 7.3 L Phosphorus 2.1 L 2.0 L Magnesium 2.0 Total Bilirubin AST ALT Alkaline Phosphatase Total Protein Albumin Active Medications Generic Name Dose Route Start Last Admin Trade Name Freq PRN Reason Stop Dose Admin Acetaminophen 650 mg 08/22/17 09:18 Tylenol - PO Q4H PRN PAIN 6-10 Aspirin 325 mg 08/21/17 09:00 08/22/17 09:48 Asa - PO Not Given DAILY ERI Heparin Sodium/Dextrose 500 mls @ 10 mls/hr 08/21/17 08:45 08/22/17 09:43 Heparin Infusion - IVPB 10 mls/hr TITR ERI Administration Protocol 500 UNITS/HR Cefazolin Sodium 50 mls @ 100 mls/hr 08/21/17 10:00 08/22/17 09:49 Ancef 1gm Ivpb (Pre-Docked) IVPB 100 mls/hr Q8H-IV ERI Administration Potassium Chloride/Dextrose/Sod Cl 1,000 mls @ 150 mls/hr 08/21/17 21:15 04:00 D5-1/2ns+10 Meq Kcl - IV 150 mls/hr ASDIR ERI Administration Ketorolac Tromethamine 30 mg 08/21/17 11:53 08/22/17 12:18 Toradol Injection - IVPB 08/26/17 09:49 30 mg Q8H ERI Administration Metoclopramide HCl 10 mg 08/21/17 09:23 Reglan Injection - IVPB Q6H PRN NAUSEA AND/OR VOMITING Ondansetron HCl 4 mg 08/21/17 09:23 Zofran Injection IVPUSH Q6H PRN NAUSEA AND/OR VOMITING Oxycodone HCl 10 mg 08/22/17 09:17 Roxicodone - PO Q4H PRN PAIN 6-10 Prochlorperazine Maleate 25 mg 08/21/17 09:23 Compazine Suppository - [place] Q12H PRN NAUSEA AND/OR VOMITING Zolpidem Tartrate 5 mg 08/21/17 09:23 Ambien - PO 08/23/17 18:37 HS PRN INSOMNIA ASSESSMENT/PLAN: 37 yo F with h/o left breast cancer s/p left total mastectomy with reconstruction and alaina flap here for post op observation. Plan: - Continue to monitor to flap for sufficient flow, and absent evidence of infection. - Monitor KHOA drain output - Cont adequate pain control with oxycodone, tylenol, and toradol PRN - Monitor H/H - Ambulation as tolerated FEN: IVF, Lytes PRN, Diet as tolerated PPx: Heparin, SCD's Dispo: Cont ICU floor Visit type - Emergency Visit Emergency Visit: No - New Patient This patient is new to me today: Yes Date on this admission: 08/22/17 - Critical Care Critical Care patient: Yes Total Critical Care Time (in minutes): 30 Critical Care Statement: The care of this patient involved high complexity decision making to prevent further life threatening deterioration of the patient 's condition and/or to evaluate & treat vital organ system(s) failure or risk of failure.
[2017-08-22] MEDS ORDERED: NAPH,MB-DB/K PH,MBDB POWDER PACKET PO ONE ×2 (15:12→18:45)
[2017-08-22 17:38] LABS: BASOPHIL 0.3 % (0-2.0); EOSINOPHIL 0.8 % (0-4.5); MCH 28.9 pg (25.7-33.7); MCHC 34.5 g/dl (32.0-36.0); MEAN CELL VOLUME 83.9 fl (80-96); MEAN PLT VOLUME 7.3 fl (7.5-11.1); NEUTROPHILS 74.2 % (42.8-82.8); PLATELET COUNT 176 K/MM3 (134-434); RDW 13.8 % (11.6-15.6); WHITE BLOOD COUNT 6.6 K/mm3 (4.0-10.0)
--- NOTE | 2017-08-22 17:50 | OP ---
DATE OF OPERATION: 08/21/2017 ATTENDING SURGEON: Sherif Kruger MD CO-SURGEON: Rom Barksdale MD PREOPERATIVE DIAGNOSIS: Loss of blood flow in left JOE (deep inferior epigastric perforators) flap for breast reconstruction. POSTOPERATIVE DIAGNOSIS: Loss of blood flow in left JOE (deep inferior epigastric perforators) flap for breast reconstruction. PROCEDURE PERFORMED: 1. Exploration of left mastectomy chest wound. 2. Venous thrombolysis. 3. Mechanical thrombectomy with lytic drug. 4. Repair of thoracic artery. 5. Repair of thoracic vein. 6. Revision of reconstructed breast. 7. Use of operating microscope. 8. Resection of rib INDICATION FOR OPERATION: At 4:30 a.m. on August 21, 2017, Dr. Kruger and Dr. Barksdale were informed that there was a loss of blood flow to the left JOE flap. This was diagnosed with loss of signal at the implantable Doppler and a change in the physical exam. The patient was immediately brought back to the operating room for salvage of the left JOE flap. DESCRIPTION OF OPERATION: Patient was brought to the OR. She was placed supine upon the table. General anesthesia was induced, and she was prepped and draped in a sterile fashion. Attention was paid to the left breast. The previously existing incisions surrounding the JOE flap were opened sharply using tenotomy scissors , and the flap was exposed. The flap was then elevated. There was minimal amount of old hematoma, approximately 3 mL, within the mastectomy cavity. This was swept out. The flap was gently elevated, and the pedicle was investigated under 3.5 loupe magnification. The pedicle demonstrated clot at the arterial anastomosis as well as within the veins, with no arterial flow and no venous flow at the pedicle and the internal mammary artery and internal mammary vein. The flap was appropriately positioned and secured in place. The operating microscope was brought into position. Under the operating microscope, the arterial anastomosis was taken down. The 8- 0 nylon sutures were meticulously removed, and exploring the anastomosis, there was noted to be a significant amount of white clot at the thrombosed anastamosis and extending up and into the pedicle artery. Heparinized saline was introduced into the artery with some resistance to flow, and a mechanical thrombectomy, stripping the artery, was performed in a milking fashion with 2 microjeweller forces. After mechanically removing the clot, the heparinized saline was again introduced, and it now flowed with less resistance. The decision was made to use tissue plasminogen activator, and the venous anastomosis was taken down at the medial vein, and a single green clamp was applied at the lateral vein. Tissue plasminogen activator was introduced into the flap. A total of 2 mg was used. The artery and vein were then clamped with a single green clamp, and 5 minutes on the clock was waited for the tissue plasminogen activator to have effect. The single green clamp was removed from the pedicle artery and from the open medial pedicle vein. The lateral pedicle vein remained clamped. Next, 150 mL of heparinized saline solution was then used to flush all tissue plasminogen activator from the flap to avoid systemic tissue plasminogen activator administration. The heparinized saline solution flushed through the flap with no resistance and a significant improvement. At the vein, the broken up clot was removed using a dilator forcep and the vein flowed free with clear heparinized saline solution. Attention was then paid to performing the anastomoses. The internal mammary vein was cut back, as well as the vein on the flap, until they appeared healthy and the lumen appeared healthy. The anastomosis was then performed using a 2.0-mm pipefitter helper. The anastomotic pipefitter helper was loaded with a 2.0-mm pipefitter helper. It was loaded into the operative field. The medial pedicle vein was brought up into the coupling device. It was everted over the coupling spikes. It was secured in position using the J-hole. The lumen was irrigated with heparinized saline solution, noted to be in good position, free of all debris. The pipefitter helper was then lowered adjacent to the medial internal mammary vein. The contents of which was brought up into the coupling device, everted over the coupling spikes, secured in position using the J-hole. The lumen was then irrigated and was free of debris and in good position. The pipefitter helper was closed, creating a secured coupled anastomosis. The coupling device was removed from the field. The single green clamp was removed , and there was noted to be excellent backflow across the anastomosis. Attention was then paid to the arterial anastomosis. The internal mammary artery at this location appeared unhealthy. Further exposure was performed by partial resection of the cartilaginous portion of the second rib. The perichondrium was scored and freed from the underlying rib and a rongeur was used for rib resection. Exposure of the MICHAEL was performed with meticulous elevation of the posterior perichondrium using bipolar cautery and microsurgical technique. All small branches of the internal mammary artery were clipped and divided as necessary. The artery was cut back until a healthy, normal-appearing lumen was achieved. The cut end of the internal mammary artery was placed in alignment with the cut end of the flap artery. The flap artery was cut back as well 1 cm until a healthy, more normal appearing flap artery was obtained. The 2 cut ends were placed in alignment within the double-green clamp. A hand-sewn anastomosis was performed using an 8 -0 nylon suture in interrupted fashion. Every suture was meticulously placed and visualized. The double green clamp was removed, and there was noted to be strong pulsatile flow within the artery, stronger than at any time for this flap. The implantable Doppler was already in position and demonstrated excellent flow and a strong signal. The flap was investigated. There was noted to be healthy, punctate bleeding from all the edges as well as a normal skin paddle with capillary refill of approximately 2 seconds. The breast reconstruction was then revised. Some volume from the flap was removed in order to avoid any undue tension or pressure upon the pedicle. The flap was rotated 90 degrees for a more comfortable position for the pedicle. The skin paddle was adjusted, de-epithelializing skin as necessary, and then, the skin incisions were closed with 3-0 PDS suture and skin roz, revising the shape of the breast and removing flap tissue in order to create a more viable flap. The patient was administered 500 units of heparin prior to unclamping the internal mammary artery and was placed on a [id number] drip in order to help with the patency of the anastomosis. As well, the patient was administered a [place] aspirin at the completion of the takeback to the OR. At the completion of the case, the patient had a healthy viable flap that was pink in form with a capillary refill of 2 seconds, with a successful salvage. She will be monitored carefully. Serial hematocrits will be taken. She will be kept on blood thinners in order to help with the patency of this anastomosis. Due to the repeated development of white clot at the anastomosis, there is a possibility that this patient has an underlying coagulation disorder such as factor V Leiden. She will get a workup for this as an outpatient after this hospitalization. SHERIF KRUGER M.D. GEORGE/[id number] MTDD
[2017-08-22] MEDS ORDERED: SODIUM CHLORIDE 0.45% 1,000 ML IV SCH (18:45)
[2017-08-22] MEDS: NAPH,MB-DB/K PH,MBDB POWDER PACKET PO SCH (22:46)
[2017-08-23] MEDS ORDERED: PT OWN MED DRAWER 7, Y5N ONE ×2 (00:27→22:09)
[2017-08-23] MEDS: CEFAZOLIN (PRE-DOCKED) 50 ML IVPB SCH ×3 (01:15→19:16)
[2017-08-23] MEDS: KETOROLAC TROMETHAMINE 30 MG/1 ML VIAL IVPB SCH ×3 (03:10→22:22)
[2017-08-23 07:00] LABS: MCH 28.1 pg (25.7-33.7); MCHC 33.7 g/dl (32.0-36.0); MEAN CELL VOLUME 83.6 fl (80-96); MEAN PLT VOLUME 6.4 fl (7.5-11.1); PLATELET COUNT 174 K/MM3 (134-434); RDW 14.1 % (11.6-15.6); WHITE BLOOD COUNT 6.9 K/mm3 (4.0-10.0)
[2017-08-23 07:52] LABS: ALBUMIN 1.7 g/dl (3.4-5.0); ANION GAP 5 (8-16); BILIRUBIN,TOTAL 0.3 mg/dL (0.2-1.0); CALCIUM 7.1 mg/dL (8.5-10.1); CO2 30 mmol/L (21-32); GLUCOSE,RANDOM 95 mg/dL (74-106); MAGNESIUM 2.2 mg/dL (1.8-2.4); PHOSPHOROUS 2.7 mg/dL (2.5-4.9); SGOT/AST 17 U/L (15-37); SGPT/ALT 16 U/L (12-78); TOT PROT 4.3 g/dl (6.4-8.2)
[2017-08-23 07:53] LABS: ALK PHOS 55 U/L (45-117); CREATININE 0.8 mg/dL (0.55-1.02)
[2017-08-23] MEDS: ASPIRIN 325 MG TABLET PO SCH (10:03)
[2017-08-23] MEDS: NAPH,MB-DB/K PH,MBDB POWDER PACKET PO SCH (10:04)
[2017-08-23] MEDS: HEPARIN INFUSION - 500 ML IVPB SCH (10:04)
--- NOTE | 2017-08-23 10:29 | PN ---
Progress Note (short form) - Note Progress Note: OOB to chair today VSS AF Tachycardia resolving Flap viable with good signals and color. Plan continue continuous monitoring ICU today, Floor tomorrow with transition to lovenox and home saturday.
[2017-08-23] MEDS: SODIUM CHLORIDE 0.45% 1,000 ML IV SCH (11:00)
--- NOTE | 2017-08-23 12:24 | PN ---
Progress Note (short form) - Note Progress Note: Patient seen and examined in the ICU. Pain controlled. Afebrile overnight. Denies shortness of breath or chest pain. Dopplers intact. OBJECTIVE: Intake & Output 08/20/17 08/21/17 08/22/17 08/23/17 23:59 23:59 23:59 23:59 Intake Total 9200 6550 4900 1790 Output Total 4025 4452 5973 1100 Balance 5175 2098 -1073 690 Weight 230 lb Last Vital Signs Temp Pulse Resp BP Pulse Ox 98.9 F 96 H 18 111/60 95 08/23/17 08:00 08/23/17 10:52 08/23/17 10:52 08/23/17 10:52 08/22/17 20:56 Active Medications Acetaminophen (Tylenol -) 650 mg PO Q4H PRN PRN Reason: PAIN 6-10 Aspirin (Asa -) 325 mg PO DAILY ERI Last Admin: 08/23/17 10:03 Dose: 325 mg Heparin Sodium/Dextrose (Heparin Infusion -) 500 mls @ 10 mls/hr IVPB TITR ERI ; 500 UNITS/HR PRN Reason: Protocol Last Admin: 08/23/17 10:04 Dose: Not Given Cefazolin Sodium (Ancef 1gm Ivpb (Pre-Docked)) 50 mls @ 100 mls/hr IVPB Q8H-IV ERI Last Admin: 08/23/17 10:03 Dose: 100 mls/hr Sodium Chloride (1/2 Normal Saline) 1,000 mls @ 42 mls/hr IV ASDIR ERI Ketorolac Tromethamine (Toradol Injection -) 30 mg IVPB Q8H [facility] Stop: 08/26/17 09:49 Last Admin: 08/23/17 03:10 Dose: 30 mg Metoclopramide HCl (Reglan Injection -) 10 mg IVPB Q6H PRN PRN Reason: NAUSEA AND/OR VOMITING Ondansetron HCl (Zofran Injection) 4 mg IVPUSH Q6H PRN PRN Reason: NAUSEA AND/OR VOMITING Oxycodone HCl (Roxicodone -) 10 mg PO Q4H PRN PRN Reason: PAIN 6-10 Prochlorperazine Maleate (Compazine Suppository -) 25 mg [place] Q12H PRN PRN Reason: NAUSEA AND/OR VOMITING Zolpidem Tartrate (Ambien -) 5 mg PO HS PRN PRN Reason: INSOMNIA Stop: 08/23/17 18:37 Gen: NAD at rest Heart: RRR Lung: decreased breath sounds at the bases Chest: +drains with serosanguinous drainage Abd: soft, nontender Ext: no edema Laboratory Results - last 24 hr 08/22/17 08/23/17 08/23/17 17:00 05:30 05:30 WBC 6.6 6.9 RBC 3.24 L 3.15 L Hgb 9.4 L 8.9 L Hct 27.2 L 26.3 L MCV 83.9 83.6 MCH 28.9 28.1 MCHC 34.5 33.7 RDW 13.8 14.1 Plt Count 176 174 MPV 7.3 L 6.4 L D Neutrophils % 74.2 Lymphocytes % 12.1 D Monocytes % 12.6 H Eosinophils % 0.8 D Basophils % 0.3 PTT (Actin FS) 32.8 Sodium Potassium Chloride Carbon Dioxide Anion Gap BUN Creatinine Creat Clearance w eGFR Random Glucose Calcium Phosphorus Magnesium Total Bilirubin AST ALT Alkaline Phosphatase Total Protein Albumin 08/23/17 05:30 WBC RBC Hgb Hct MCV MCH MCHC RDW Plt Count MPV Neutrophils % Lymphocytes % Monocytes % Eosinophils % Basophils % PTT (Actin FS) Sodium 142 Potassium 4.1 Chloride 107 Carbon Dioxide 30 Anion Gap 5 L BUN 10 Creatinine 0.8 Creat Clearance w eGFR > 60 Random Glucose 95 D Calcium 7.1 L Phosphorus 2.7 D Magnesium 2.2 Total Bilirubin 0.3 D AST 17 ALT 16 D Alkaline Phosphatase 55 Total Protein 4.3 L Albumin 1.7 L ASSESSMENT AND PLAN: Left Breast Ca S/P Left Total Mastectomy/Reconstruction with JOE flap Anemia - Flap monitoring - Pain control - monitor H/H - Normal transfusion thresholds - Heparin drip per surgery - monitor drain output - IVF - PO as tolerated - OOB when ok with surgery - Incentive Spirometry - ICU monitoring Dr Schreiber Critical care time spent in reviewing chart, evaluating patient and formulating plan - 35 minutes
--- NOTE | 2017-08-23 15:06 | PATH ---
Surgical Pathology Report Patient Name: ARIADNA JARAMILLO Med. Rec. #: [id number] /Age/Gender: 1980 (Age: 37) / F Account: [id number] Location: [facility] MED/SURG Taken: 08/20/2017 Received: 08/20/2017 Reported: 08/23/2017 Physicians: Apple Madrigal M.D. Specimen(s) Received A: LEFT BREAST, MASTECTOMY B: SUPERVISOR SAWMILL ANASTOMOSIS (ARTERY) C: VEIN ANASTOMOSIS D: VEIN ANASTOMOSIS E: ARTERIAL ANASTOMOSIS F: RESECTED PEDICLE Clinical History Left breast Ca s/p amado adj chemo and radiation Final Diagnosis A. 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 (See note) Residual Carcinoma comprises < 1 % of the treated tumor bed tissue. Surgical margins are uninvolved by carcinoma; invasive carcinoma is aT 2 mm from the closest (anterior) margin. Surgical margins are widely clear of THE FOCUS of DCIS. (See note) Nipple and skin are uninvolved by carcinoma. No definitive lymphovascular invasion is identified. Prior biopsy site changes are present. PATHOLOGIC STAGE (ypTNM): [id number] ("n" stage based on prior specimen [id number]). Note: Myoepithelial immunohistochemical markers (SMM-HC & p63), performed at [facility] demonstrate the absence of myoepithelial cells in the focus of invasive carcinoma. This finding supports the diagnosis. The focus of residual DCIS is present in a section designated "central breast tissue" with no inked margins present in the section, based on which the surgical margins appear widely clear of the focus of DCIS. See also prior specimens [id number] & [id number]. Results of ER and NV studies performed on block A12 at [facility] are as follows: ER (clone [id number] mouse monoclonal antibody by [employer]) : >90 % nuclear staining with strong to moderate intensity (Positive). NV (clone16 mouse monoclonal antibody by [employer]): 1-2 % nuclear staining with moderate intensity (Positive). Results of Her2 IHC studies will be reported separately in an addendum. Positive and negative controls (internal if applicable) show appropriate results. Formalin fixation time is within current ASCO/CAP recommendations for ER, NV and Her2 testing. Time to formalin fixation is not given. B. data processing equipment repairer anastomosis (artery), revision: Portion of artery. C. vein anastomosis: Anastomotic material, as described. (Gross examination only). D. vein anastomosis: Anastomotic material, as described. (Gross examination only). E. arterial anastomosis, ReVision: Portion of artery. F. pedicle, resection: Portion of arterial and venous tissue. Electronically Signed Coco Freeman M.D. Addendum Reported: 08/27/2017 Addendum Diagnosis Results of Her2 (IHC) studies performed on block "A12" at [place], [place] ([id number]) are as follows: Her2 IHC (EP3 from [employer], formerly known as [id number], using [employer] Polymer Refine detection kit): 0 NEGATIVE Positive and negative controls (internal if applicable) show appropriate results. Amaury Diane M.D. Gross Description A. Received in formalin, labeled "left mastectomy long lateral short superior," is a 2202 gram, 23 x 19 x 10 cm. left mastectomy specimen with a short suture marking the superior aspect and a long suture marking the lateral aspect of the specimen, per the surgeon. A 21 x 10 cm vertically oriented portion of skin containing the nipple and areola is present. The deep margin is inked black. The lateral margin is inked orange. The inferior margin is inked green. The medial margin is inked yellow. The superior margin is inked blue. The specimen is serially sectioned from superior to inferior. Sectioning reveals yellow adipose tissue and luna fibrous tissue. No cystic biopsy cavity or indurated masses are identified. There is an area of nodularity toward the superior margin. [employer] sections are submitted in 22 cassettes as follows: 1 &2-nipple, 3-retroareolar tissue, 4-6- central breast tissue, 7-14- superior margin with nodularity, 15 &16- deep margin, 17-lateral margin, 18 &19-medial margin, 06-18-tlpzpjkr margin. Time to formalin fixation: Not indicated Total formalin fixation time: Approximately 24-48 hours. B. Received in formalin labelled "change management anastomosis artery" is a 0.6 cm long x 0.3 cm in diameter portion of tissue grossly consistent with a portion of blood vessel. Bisected and totally submitted in one cassette. C. Received in formalin labelled "vein anastomosis" is 2 rings of luna plastic and metallic material each which is 0.4 cm in diameter and it is a 0.2 and 0.3 cm in length. This is for gross identification only. D. Received dry labeled "vein anastomosis" is 2 rings of luna plastic and metallic material each which is 0.4 cm in diameter and it is a 0.2 and 0.3 cm in length. This is for gross identification only. E. Received in formalin labelled "arterial anastomosis" is a 0.7 cm long x 0.3 cm in diameter portion of tissue grossly consistent with a portion of blood vessel. Sectioned and totally submitted in one cassette. F. Received in formalin labelled "resected pedicle" is a 1.6 x 1.0 x 0.4 cm portion of yellow fatty tissue. No focal lesions are identified. Sectioned and totally submitted in one cassette. [facility]/08/21/2017 [facility]/08/21/2017
--- NOTE | 2017-08-23 15:33 | PN ---
Physical Exam: SUBJECTIVE: Patient seen and examined by me at bedside. Patient s/p left total mastectomy with reconstruction and alaina flap complicated by vascular occlusion with anastamosis day #3. Patient offers no complaints. Otherwise, patient denies fever, chills, nausea, vomiting, abdominal pain, chest pain, palpitations, shortness of breath. OBJECTIVE: Vital Signs Period Temp Pulse Resp BP Sys/Jones Pulse Ox Last 24 Hr 98.9 F-100.4 F 86-103 18-20 100-118/52-71 95-97 GENERAL: The patient is awake, alert, and fully oriented, in no acute distress. LUNGS: Breath sounds equal, clear to auscultation bilaterally, no wheezes, no crackles, no accessory muscle use. HEART: Regular rate and rhythm, S1, S2 without murmur, rub or gallop. CHEST: Two KHOA drainages under left breast draining serosanguinous fluids ABDOMEN: Soft, mild tenderness with KHOA draining serosanguinous fluids, nondistended, normoactive bowel sounds, no guarding, no rebound, no hepatosplenomegaly, no masses. EXTREMITIES: 2+ pulses, warm, well-perfused, no edema. Laboratory Results - last 24 hr 08/22/17 08/23/17 08/23/17 17:00 05:30 05:30 WBC 6.6 6.9 RBC 3.24 L 3.15 L Hgb 9.4 L 8.9 L Hct 27.2 L 26.3 L MCV 83.9 83.6 MCH 28.9 28.1 MCHC 34.5 33.7 RDW 13.8 14.1 Plt Count 176 174 MPV 7.3 L 6.4 L D Neutrophils % 74.2 Lymphocytes % 12.1 D Monocytes % 12.6 H Eosinophils % 0.8 D Basophils % 0.3 PTT (Actin FS) 32.8 Sodium Potassium Chloride Carbon Dioxide Anion Gap BUN Creatinine Creat Clearance w eGFR Random Glucose Calcium Phosphorus Magnesium Total Bilirubin AST ALT Alkaline Phosphatase Total Protein Albumin 08/23/17 05:30 WBC RBC Hgb Hct MCV MCH MCHC RDW Plt Count MPV Neutrophils % Lymphocytes % Monocytes % Eosinophils % Basophils % PTT (Actin FS) Sodium 142 Potassium 4.1 Chloride 107 Carbon Dioxide 30 Anion Gap 5 L BUN 10 Creatinine 0.8 Creat Clearance w eGFR > 60 Random Glucose 95 D Calcium 7.1 L Phosphorus 2.7 D Magnesium 2.2 Total Bilirubin 0.3 D AST 17 ALT 16 D Alkaline Phosphatase 55 Total Protein 4.3 L Albumin 1.7 L Active Medications Generic Name Dose Route Start Last Admin Trade Name Parishq PRN Reason Stop Dose Admin Acetaminophen 650 mg 08/22/17 09:18 08/23/17 13:44 Tylenol - PO 650 mg Q4H PRN Administration PAIN 6-10 Aspirin 325 mg 08/21/17 09:00 08/23/17 10:03 Asa - PO 325 mg DAILY ERI Administration Heparin Sodium/Dextrose 500 mls @ 10 mls/hr 08/21/17 08:45 08/23/17 10:04 Heparin Infusion - IVPB Not Given TITR ERI Protocol 500 UNITS/HR Cefazolin Sodium 50 mls @ 100 mls/hr 08/21/17 10:00 08/23/17 10:03 Ancef 1gm Ivpb (Pre-Docked) IVPB 100 mls/hr Q8H-IV ERI Administration Sodium Chloride 1,000 mls @ 42 mls/hr 08/23/17 10:30 1/2 Normal Saline IV ASDIR ERI Ketorolac Tromethamine 30 mg 08/21/17 11:53 08/23/17 03:10 Toradol Injection - IVPB 08/26/17 09:49 30 mg Q8H ERI Administration Metoclopramide HCl 10 mg 08/21/17 09:23 Reglan Injection - IVPB Q6H PRN NAUSEA AND/OR VOMITING Ondansetron HCl 4 mg 08/21/17 09:23 Zofran Injection IVPUSH Q6H PRN NAUSEA AND/OR VOMITING Oxycodone HCl 10 mg 08/22/17 09:17 Roxicodone - PO Q4H PRN PAIN 6-10 Prochlorperazine Maleate 25 mg 08/21/17 09:23 Compazine Suppository - OR Q12H PRN NAUSEA AND/OR VOMITING Zolpidem Tartrate 5 mg 08/21/17 09:23 Ambien - PO 08/23/17 18:37 HS PRN INSOMNIA ASSESSMENT/PLAN: Patient s/p left total mastectomy with reconstruction and alaina flap complicated by vascular occlusion with revision of anastamosis. Patient in the ICU for further monitoring and management #Total mastectomy with reconstruction -POD day #3 -Complicated by vascular occlusion -Continue Heparin drip -Continue Ancef 1gm Q8H -Continue pain control with Toradol 30mg Q8H and Tylenol 650mg Q4H -Continue 1.2 NS @42mls/hr -Continuous doppler monitoring of flap -300cc drained in the last 24 hours from KHOA. Continue drain output monitoring -Continue monitoring Abdomen KHOA. -Continue Incentive Spirometer -OOB as tolerated F/E/N -1/2 NS @42mls/hr -Electrolytes wnl -Regular diet Prophylaxis -Continue Heparin drip for DVT -No GI prophylaxis needed Disposition -Deconditioning: PT -Full code -One more day in ICU, as per surgeon Visit type - Emergency Visit Emergency Visit: Yes ED Registration Date: 08/20/17 Care time: The patient presented to the Emergency Department on the above date and was hospitalized for further evaluation of their emergent condition. - New Patient This patient is new to me today: Yes Date on this admission: 08/23/17 - Critical Care Critical Care patient: Yes Total Critical Care Time (in minutes): 45 Critical Care Statement: The care of this patient involved high complexity decision making to prevent further life threatening deterioration of the patient 's condition and/or to evaluate & treat vital organ system(s) failure or risk of failure.
--- NOTE | 2017-08-23 16:40 | PN ---
Progress Note, Physician Chief Complaint: S/P left mastectomy with JOE reconstruction POD#3, revision of JOE POD#2 History of Present Illness: Patient seen this am and comfortable without any complaints. - Current Medication List Current Medications: Active Medications Acetaminophen (Tylenol -) 650 mg PO Q4H PRN PRN Reason: PAIN 6-10 Last Admin: 08/23/17 13:44 Dose: 650 mg Aspirin (Asa -) 325 mg PO DAILY ERI Last Admin: 08/23/17 10:03 Dose: 325 mg Heparin Sodium/Dextrose (Heparin Infusion -) 500 mls @ 10 mls/hr IVPB TITR ERI ; 500 UNITS/HR PRN Reason: Protocol Last Admin: 08/23/17 10:04 Dose: Not Given Cefazolin Sodium (Ancef 1gm Ivpb (Pre-Docked)) 50 mls @ 100 mls/hr IVPB Q8H-IV ERI Last Admin: 08/23/17 10:03 Dose: 100 mls/hr Sodium Chloride (1/2 Normal Saline) 1,000 mls @ 42 mls/hr IV ASDIR ERI Ketorolac Tromethamine (Toradol Injection -) 30 mg IVPB Q8H ERI Stop: 08/26/17 09:49 Last Admin: 08/23/17 03:10 Dose: 30 mg Metoclopramide HCl (Reglan Injection -) 10 mg IVPB Q6H PRN PRN Reason: NAUSEA AND/OR VOMITING Ondansetron HCl (Zofran Injection) 4 mg IVPUSH Q6H PRN PRN Reason: NAUSEA AND/OR VOMITING Oxycodone HCl (Roxicodone -) 10 mg PO Q4H PRN PRN Reason: PAIN 6-10 Prochlorperazine Maleate (Compazine Suppository -) 25 mg NE Q12H PRN PRN Reason: NAUSEA AND/OR VOMITING Zolpidem Tartrate (Ambien -) 5 mg PO HS PRN PRN Reason: INSOMNIA Stop: 08/23/17 18:37 - Objective Vital Signs: Vital Signs Temperature 100.4 F H 08/23/17 14:00 Pulse Rate 92 H 08/23/17 14:00 Respiratory Rate 18 08/23/17 14:00 Blood Pressure 100/71 08/23/17 14:00 O2 Sat by Pulse Oximetry (%) 96 08/23/17 09:00 Constitutional: Yes: Well Nourished, Calm Gastrointestinal: Yes: Other (Abdominal incision clean with steristrips intact. JPs with serosanginous discharge noted.) Breast(s): Yes: Other (Flap with good color and strong signal. Steristrips intact without discharge or erythema noted. JPs with serosanginous discharge noted.) Labs: CBC, BMP 08/23/17 05:30 08/23/17 05:30 INR, PTT INR 1.23 (0.82-1.09) H 08/21/17 12:45 Problem List - Problems (1) Breast cancer, left breast Code(s): C50.912 - MALIGNANT NEOPLASM OF UNSPECIFIED SITE OF LEFT FEMALE BREAST Qualifiers: Breast location: upper outer quadrant of breast Patient sex: female Qualified Code(s): C50.412 - Malignant neoplasm of upper-outer quadrant of left female breast; Z17.0 - Estrogen receptor positive status [ER+] Assessment/Plan Plan: Patient to remain in the ICU for continuous monitoring. Plan to transfer to the floor tomorrow as per Dr. Barksdale. Possible discharge home on Saturday.
[2017-08-24] MEDS: CEFAZOLIN (PRE-DOCKED) 50 ML IVPB SCH ×3 (01:19→18:52)
[2017-08-24] MEDS ORDERED: HEMOQUE CONTROL SOLUTION ONE (04:11)
[2017-08-24] MEDS: KETOROLAC TROMETHAMINE 30 MG/1 ML VIAL IVPB SCH ×3 (05:21→19:49)
[2017-08-24] MEDS: HEPARIN INFUSION - 500 ML IVPB SCH ×2 (05:21→19:49)
[2017-08-24 05:51] LABS: MCH 28.5 pg (25.7-33.7); MEAN PLT VOLUME 6.8 fl (7.5-11.1); PLATELET COUNT 209 K/MM3 (134-434); RDW 13.8 % (11.6-15.6); WHITE BLOOD COUNT 5.9 K/mm3 (4.0-10.0)
[2017-08-24 06:14] LABS: ALBUMIN 1.7 g/dl (3.4-5.0); ALK PHOS 59 U/L (45-117); ANION GAP 5 (8-16); BILIRUBIN,TOTAL 0.2 mg/dL (0.2-1.0); CALCIUM 7.5 mg/dL (8.5-10.1); CO2 30 mmol/L (21-32); CREATININE 0.7 mg/dL (0.55-1.02); GLUCOSE,RANDOM 91 mg/dL (74-106); PHOSPHOROUS 2.9 mg/dL (2.5-4.9); SGOT/AST 14 U/L (15-37); SGPT/ALT 14 U/L (12-78); TOT PROT 4.3 g/dl (6.4-8.2)
--- NOTE | 2017-08-24 10:41 | PN ---
Progress Note (short form) - Note Progress Note: VSS AF Flap is viable and soft with good color and flow signals HCT 24, patient is pale but not tachycardic or otherwise symptomatic. KHOA's all thin serous fluid Plan is for transfuse 2u PRBC while still in unit with continuous monitoring Start 40u SQ lovenox BID now and D/C heparin one hour after transfusion Patient may transfer to the floor with q 4 monitoring after transfusion Progressive ambulation Hopeful for discharge tomorrow
[2017-08-24] MEDS: SODIUM CHLORIDE 0.45% 1,000 ML IV SCH (11:08)
[2017-08-24] MEDS: ASPIRIN 325 MG TABLET PO SCH (11:08)
--- NOTE | 2017-08-24 12:05 | OP ---
DATE OF OPERATION: 08/21/2017 ATTENDING SURGEON: Rom Alcazar MD CO-SURGEON: Sherif Baeza MD PREOPERATIVE DIAGNOSIS: Loss of blood flow in the left deep inferior epigastric associate account manager flap for breast reconstruction. POSTOPERATIVE DIAGNOSIS: Loss of blood flow in the left deep inferior epigastric associate account manager flap for breast reconstruction. PROCEDURES PERFORMED: 1. Exploration of left mastectomy chest wound. 2. Removal of additional rib for exposure of more proximal portion of internal mammary arteries and veins. 3. Venous thrombolysis. 4. Mechanical thrombectomy with lytic agent. 5. Repair of thoracic artery. 6. Repair of thoracic vein. 7. Revision of reconstructed breast. 8. Use of operating microscope. INDICATIONS FOR PROCEDURE: At 4:30 a.m., on August 21, 2017, Dr. Baeza and Dr. Alcazar were informed that there was loss of blood flow to the left deep inferior epigastric associate account manager flap. This was diagnosed with the loss of signal at the implantable Doppler and a change in the physical exam. The patient was immediately brought back to the operating room for salvage of the left JOE flap. DESCRIPTION OF OPERATION: The patient was brought to the operating room. She was placed in supine position on the table. General anesthesia was induced. She was prepped and draped in the standard surgical fashion. Sequential compression stockings and FLAKITA hose were on. The patient received a gram of Ancef preoperatively. Attention was paid to the left breast. The previously existing incisions surrounding the flap were opened sharply, and using tenotomy scissors, the flap was exposed. The flap was then elevated. There was a minimal amount of old hematoma, approximately 3 mL, within the mastectomy cavity. This was swept out. The flap was gently elevated and the pedicle was investigated under a 3.5-power loop magnification. The pedicle demonstrated a clot at the arterial anastomosis, as well as within the veins, with no arterial flow and no venous flow at the pedicle and the internal artery and internal mammary vein. The flap was appropriately positioned and secured in place. The operating microscope was brought into position. Under the operating microscope, the arterial anastomosis was taken down. The 8-0 nylon sutures were meticulously removed, and exploring the anastomosis, there was noted to be a significant amount of white clot at the thrombosis and extending up into the pedicle artery. Heparinized saline was introduced into the artery with some resistance to flow, and a mechanical thrombectomy stripping the artery was performed in a milking fashion with 2 microdrillers. After mechanically removing the clot, heparinized saline was again introduced. It now flowed with less resistance. The decision was made to use the tissue plasminogen activator and the venous anastomosis was taken down at the medial vein. A single Green clamp was applied to the lateral vein. Tissue plasminogen activator was introduced into the flap. A total of 2 mg was used. The artery and vein were clamped with a single Green clamp and 5 minutes on the clock was waited for the tissue plasminogen activator to have effect. A single Green clamp was removed from the pedicle artery and from the open pedicle vein. The lateral pedicle vein remained clamped. Next, 150 mL of heparinized-saline solution was then used to flash all tissue plasminogen activator from the flap to avoid systemic tissue plasminogen activator administration. The heparinized-saline solution was flushed through the flap with no resistance and at a significant improvement. At the vein, the broken up clot was removed and the vein flowed free with clear heparinized-saline solution. Attention was then paid to performing the anastomoses. At this point, decision was made to remove a more superior rib in order to expose the more proximal portion of the internal mammary artery for a new, fresh anastomosis. The removal of rib is performed from [id number], first by incising into the superficial anterior perichondrium. The Spencer elevator is used to remove the perichondrium from the rib. The rib was then removed piecemeal with rongeurs. The posterior perichondrium is then carefully removed and the internal mammary vessels were teased from this plane with a combination of blunt and sharp dissection. Crossing branches are ligated between Ligaclips. The artery is freed from its surrounding tissues and mobilized. A virgin segment of the artery is then prepared for re-anastomosis in a rib space one superior to the previous anastomosis. Attention was then redirected towards the veins. The internal mammary vein was cut back as well, and the vein on the flap, until they appeared healthy and the limb appeared healthy. The anastomosis was then performed using a 2-mm conservation engineer. The anastomotic conservation engineer was loaded with a 2-mm conservation engineer. It was loaded into the operative field. The medial pedicle was brought into the coupling device. It was everted over the coupling spikes. It was secured in position using the . The lumen was irrigated with heparinized-saline solution, noted to be in good position and free of all debris. The conservation engineer was then lowered adjacent to the medial internal mammary vein, the contents of which were brought up into the coupling device, everted over the coupling spike, secured in position over the . The lumen was then irrigated and free of debris and in good position. The conservation engineer was closed, creating a secured, coupled anastomosis. The coupling device was then removed from the field. The single Green clamp was removed and there was noted to be excellent backflow across the anastomosis. Please note that this venous coupled anastomosis was performed for both the medial and lateral veins in an identical fashion, using two separate 2-mm couplers, as previously described. Attention was then paid towards the arterial anastomosis. The internal mammary artery at this location after the removal of the second rib did appear healthy. A normal-appearing lumen was achieved. The cut end of the internal mammary artery was placed in alignment with the cut end of the flap artery. The flap artery was cut back as well 1 cm, until a healthy, more normal-appearing, flap artery was obtained. The two cut ends were placed in alignment with a double-approximating Green clamp. A hand-sewn anastomosis was performed using an 8-0 nylon interrupted technique. Every suture was meticulously placed and visualized. The double Green clamp was removed and there was noted to be strong, pulsatile flow within the artery, stronger than any time for this flap. The implantable Doppler was already in position and demonstrated excellent flow with a strong signal. The flap was investigated. There was noted to be healthy, punctate bleeding from all edges, as well as a normal skin paddle with capillary refill of approximately 2 seconds. The breast reconstruction was then revised. Some volume of the flap was removed to avoid any undue tension or pressure upon the pedicle. The flap was rotated 90 degrees for a more comfortable position for the pedicle, and the skin paddle was adjusted, de-epithelializing skin as needed. Then, skin incisions were closed with 3-0 PDS suture, and skin roz revising the shape of the breast, and removing flap tissue in order to create a more viable flap. The patient was administered 5000 units of heparin, prior to unclamping the internal mammary artery, and was placed on a 500-hdne-vyr-hour drip, in order to help with the patency of the anastomosis, as well. The patient was administered aspirin immediately at the completion of the procedure. The flap was pink and viable with good, 2-second refill on the skin paddle, demonstrating a successful salvage operation. She will be monitored closely. Serial hematocrits will be taken. She will be kept on blood thinners, in order to help with the patency of the anastomosis. Due to the repeated development of a white clot at the anastomosis, there is a possibility that this patient has an underlying coagulation disorder such as factor V Leiden. She will get a workup for this as an outpatient, after this hospitalization. ROM ALCAZAR M.D. [id number]
--- NOTE | 2017-08-24 12:20 | PN ---
Progress Note, Physician Chief Complaint: S/P Left Total MTX with DEIP, complicated by post-op revisional surgery History of Present Illness: Feeling very well - Current Medication List Current Medications: Active Medications Acetaminophen (Tylenol -) 650 mg PO Q4H PRN PRN Reason: PAIN 6-10 Last Admin: 08/23/17 13:44 Dose: 650 mg Aspirin (Asa -) 325 mg PO DAILY ERI Last Admin: 08/24/17 11:08 Dose: 325 mg Enoxaparin Sodium (Lovenox -) 40 mg SQ Q12H ERI Heparin Sodium/Dextrose (Heparin Infusion -) 500 mls @ 10 mls/hr IVPB TITR ERI ; 500 UNITS/HR PRN Reason: Protocol Stop: 08/24/17 19:00 Last Admin: 08/24/17 05:21 Dose: 10 mls/hr Cefazolin Sodium (Ancef 1gm Ivpb (Pre-Docked)) 50 mls @ 100 mls/hr IVPB Q8H-IV ERI Last Admin: 08/24/17 11:08 Dose: 100 mls/hr Sodium Chloride (1/2 Normal Saline) 1,000 mls @ 42 mls/hr IV ASDIR ERI Last Admin: 08/24/17 11:08 Dose: Not Given Ketorolac Tromethamine (Toradol Injection -) 30 mg IVPB Q8H [facility] Stop: 08/26/17 09:49 Last Admin: 08/24/17 05:21 Dose: 30 mg Metoclopramide HCl (Reglan Injection -) 10 mg IVPB Q6H PRN PRN Reason: NAUSEA AND/OR VOMITING Ondansetron HCl (Zofran Injection) 4 mg IVPUSH Q6H PRN PRN Reason: NAUSEA AND/OR VOMITING Oxycodone HCl (Roxicodone -) 10 mg PO Q4H PRN PRN Reason: PAIN 6-10 Prochlorperazine Maleate (Compazine Suppository -) 25 mg CA Q12H PRN PRN Reason: NAUSEA AND/OR VOMITING - Objective Vital Signs: Vital Signs Temperature 99.1 F 08/24/17 10:00 Pulse Rate 98 H 08/24/17 12:11 Respiratory Rate 18 08/24/17 12:11 Blood Pressure 119/58 08/24/17 12:11 O2 Sat by Pulse Oximetry (%) 99 08/23/17 21:00 Labs: CBC, BMP 08/24/17 05:00 08/24/17 05:00 INR, PTT INR 1.23 (0.82-1.09) H 08/21/17 12:45 Assessment/Plan Apprecuate Dr. 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
[2017-08-24] MEDS: ENOXAPARIN NA (PORCINE) 40 MG/0.4 ML DISP.SYRIN SQ SCH ×2 (13:25→22:35)
--- NOTE | 2017-08-24 14:47 | PN ---
Progress Note (short form) - Note Progress Note: Progress Note: PULM/CCM Patient seen and examined in the ICU. 24HR: -no acute events overnight -Breast team saw this am, giving 2PRBC, no acute bleeding OBJECTIVE: Vital Signs Temp 98.9 F 08/24/17 14:26 Pulse 88 08/24/17 14:26 Resp 18 08/24/17 14:26 BP 103/84 08/24/17 14:26 Pulse Ox 99 08/23/17 21:00 Intake & Output 08/23/17 08/24/17 08/24/17 23:59 11:59 23:59 Intake Total 1224 724 Output Total 450 190 Balance 774 534 Weight 104.326 kg Intake: IV 624 624 Heparin Infusion - 500 ml 120 120 @ 500 UNITS/HR 10 mls/hr IVPB TITR ERI Rx#: [id number] 1/2 Normal Saline 1,000 504 504 ml @ 42 mls/hr IV ASDIR ERI Rx#:[id number] IVPB 100 100 Oral 500 Output: Drainage 450 190 #3 Right Lower Abdomen 115 50 #2 Left Lower Abdomen 165 30 #1 Left Upper Breast 170 110 Other: Voiding Method Bedpan Toilet # Unmeasured Voids Alves 3 1 2 Bowel Movement No Yes # Bowel Movements 1 Active Medications Acetaminophen (Tylenol -) 650 mg PO Q4H PRN PRN Reason: PAIN 6-10 Last Admin: 08/23/17 13:44 Dose: 650 mg Aspirin (Asa -) 325 mg PO DAILY ERI Last Admin: 08/24/17 11:08 Dose: 325 mg Enoxaparin Sodium (Lovenox -) 40 mg SQ Q12H REI Last Admin: 08/24/17 13:25 Dose: 40 mg Heparin Sodium/Dextrose (Heparin Infusion -) 500 mls @ 10 mls/hr IVPB TITR ERI ; 500 UNITS/HR PRN Reason: Protocol Stop: 08/24/17 19:00 Last Admin: 08/24/17 05:21 Dose: 10 mls/hr Cefazolin Sodium (Ancef 1gm Ivpb (Pre-Docked)) 50 mls @ 100 mls/hr IVPB Q8H-IV ERI Last Admin: 08/24/17 11:08 Dose: 100 mls/hr Sodium Chloride (1/2 Normal Saline) 1,000 mls @ 42 mls/hr IV ASDIR [facility] Last Admin: 08/24/17 11:08 Dose: Not Given Ketorolac Tromethamine (Toradol Injection -) 30 mg IVPB Q8H [facility] Stop: 08/26/17 09:49 Last Admin: 08/24/17 05:21 Dose: 30 mg Metoclopramide HCl (Reglan Injection -) 10 mg IVPB Q6H PRN PRN Reason: NAUSEA AND/OR VOMITING Ondansetron HCl (Zofran Injection) 4 mg IVPUSH Q6H PRN PRN Reason: NAUSEA AND/OR VOMITING Oxycodone HCl (Roxicodone -) 10 mg PO Q4H PRN PRN Reason: PAIN 6-10 Prochlorperazine Maleate (Compazine Suppository -) [address] Q12H PRN PRN Reason: NAUSEA AND/OR VOMITING Gen: NAD at rest, sitting in chair with family Heart: RRR Lung: decreased breath sounds at the bases Chest: +drains with minimal serosanguinous drainage Abd: soft, nontender Ext: no edema CBCD WBC 5.9 K/mm3 (4.0-10.0) 08/24/17 05:00 RBC 2.87 M/mm3 (3.60-5.2) L 08/24/17 05:00 Hgb 8.2 GM/dL (10.7-15.3) L 08/24/17 05:00 Hct 24.1 % (32.4-45.2) L 08/24/17 05:00 MCV 84.0 fl (80-96) 08/24/17 05:00 MCHC 34.0 g/dl (32.0-36.0) 08/24/17 05:00 RDW 13.8 % (11.6-15.6) 08/24/17 05:00 Plt Count 209 K/MM3 (134-434) D 08/24/17 05:00 MPV 6.8 fl (7.5-11.1) L 08/24/17 05:00 CMP Sodium 142 mmol/L (136-145) 08/24/17 05:00 Potassium 3.9 mmol/L (3.5-5.1) 08/24/17 05:00 Chloride 107 mmol/L (98-107) 08/24/17 05:00 Carbon Dioxide 30 mmol/L (21-32) 08/24/17 05:00 Anion Gap 5 (8-16) L 08/24/17 05:00 BUN 11 mg/dL (7-18) 08/24/17 05:00 Creatinine 0.7 mg/dL (0.55-1.02) 08/24/17 05:00 Creat Clearance w eGFR > 60 (>60) 08/24/17 05:00 Calcium 7.5 mg/dL (8.5-10.1) L 08/24/17 05:00 Total Bilirubin 0.2 mg/dL (0.2-1.0) D 08/24/17 05:00 AST 14 U/L (15-37) L 08/24/17 05:00 ALT 14 U/L (12-78) 08/24/17 05:00 Alkaline Phosphatase 59 U/L (45-117) 08/24/17 05:00 Total Protein 4.3 g/dl (6.4-8.2) L 08/24/17 05:00 Albumin 1.7 g/dl (3.4-5.0) L 08/24/17 05:00 ASSESSMENT AND PLAN: Left Breast Ca S/P Left Total Mastectomy/Reconstruction with JOE flap Anemia - Flap monitoring - Pain control - monitor H/H, surgical team ordered 2PRBC - Heparin drip per surgery - monitor drain output - IVF - PO as tolerated - OOB when ok with surgery - Incentive Spirometry - Ok for floor but likely D/c home tomorrow am Jaziel Bradley ACNP
[2017-08-24] MEDS ORDERED: oxyCODONE HCL 5 MG TABLET PO PRN (23:28)
[2017-08-24] MEDS ORDERED: ACETAMINOPHEN 325 MG TABLET (FP) PO PRN (23:28)
[2017-08-24] MEDS ORDERED: ONDANSETRON 4 MG/2 ML VIAL IVPUSH PRN (23:28)
[2017-08-24] MEDS ORDERED: PROCHLORPERAZINE MALEATE 25 MG SUPP.RECT PR PRN (23:28)
[2017-08-24] MEDS ORDERED: SODIUM CHLORIDE 0.45% 1,000 ML IV SCH (23:28)
[2017-08-24] MEDS ORDERED: METOCLOPRAMIDE HCL INJECTION 10 MG/2 ML VIAL IVPB PRN (23:28)
[2017-08-25] MEDS: CEFAZOLIN 1 GM in DEXTROSE 5%-WATER - 50 ML IVPB SCH ×3 (01:16→18:25)
[2017-08-25] MEDS: KETOROLAC TROMETHAMINE 30 MG/1 ML VIAL IVPB SCH ×4 (05:11→19:47)
[2017-08-25 07:05] LABS: MCH 28.3 pg (25.7-33.7); MCHC 34.4 g/dl (32.0-36.0); MEAN CELL VOLUME 82.1 fl (80-96); MEAN PLT VOLUME 6.6 fl (7.5-11.1); PLATELET COUNT 233 K/MM3 (134-434); RDW 14.5 % (11.6-15.6); WHITE BLOOD COUNT 7.6 K/mm3 (4.0-10.0)
[2017-08-25] MEDS ORDERED: ceFAZolin SODIUM 1 GM VIAL ONE ×2 (09:03→18:22)
[2017-08-25] MEDS ORDERED: DEXTROSE 5%-WATER - 50 ML IVPB ONE ×2 (09:03→18:22)
[2017-08-25] MEDS: ENOXAPARIN NA (PORCINE) 40 MG/0.4 ML DISP.SYRIN SQ SCH ×2 (09:57→21:05)
[2017-08-25] MEDS ORDERED: ASPIRIN 325 MG TABLET PO SCH (10:00)
--- NOTE | 2017-08-25 13:54 | PN ---
Progress Note (short form) - Note Progress Note: Flap viable, VSS AF Good response to transfusion D/C monitoring d/c home with instructions and [facility] care Continue ASA, toradol, lovenox or eliquis if it is authorized not both.
--- NOTE | 2017-08-25 13:57 | DS ---
Physical Examination Vital Signs: Vital Signs Temperature 98.8 F 08/25/17 06:00 Pulse Rate 82 08/25/17 11:16 Respiratory Rate 20 08/25/17 06:00 Blood Pressure 116/64 08/25/17 06:00 O2 Sat by Pulse Oximetry (%) 98 08/25/17 11:16 Constitutional: Yes: Well Nourished Eyes: Yes: WNL HENT: Yes: WNL Neck: Yes: WNL Cardiovascular: Yes: WNL Respiratory: Yes: WNL Gastrointestinal: Yes: WNL ...Rectal Exam: Yes: Deferred Renal/: Yes: WNL Breast(s): Yes: WNL, Left (reconstruction, viable) Musculoskeletal: Yes: WNL Extremities: Yes: WNL Edema: No Integumentary: Yes: WNL Wound/Incision: Yes: Clean/Dry Neurological: Yes: WNL ...Motor Strength: WNL Psychiatric: Yes: WNL (flap viable, ok for discharge with PO ASA, elequis, toradol, duracef, percocet. Patient notified to only use lovenox if the elequis is not covered.) Labs: CBC, BMP 08/25/17 06:00 08/24/17 05:00 Discharge Summary Reason For Visit: LEFT BREAST CANCER Current Active Problems FHx: mastectomy (Acute) Status post transverse rectus abdominis muscle flap breast reconstruction (Acute ) Condition: Good - Instructions Diet, Activity, Other Instructions: reg diet, no caffeine, no constrictive dressings to chest or abdomen, no BRA, keep all surgical sites dry, teach [facility] care and log, patient to roll in and out of bed, do not use abdominal strength to get up. f/u yap 1 week. Patient to take PO ASpirin, toradol. Eliquis if it is covered, or lovenox, BUT NOT BOTH. patient notified Disposition: HOME - Home Medications Comprehensive Discharge Medication List: Ambulatory Orders Cholecalciferol (Vitamin D3) [Vitamin D3] 2,000 unit PO DAILY 03/19/17 Aspirin EC 81 mg PO DAILY 08/16/17 Tamoxifen Citrate 20 mg PO DAILY 08/16/17 Acetaminophen W/ Codeine #3 [Tylenol # 3 -] 2 tab PO Q6H PRN #30 tablet MDD 6 Cefadroxil 500 mg PO BID #20 capsule 08/23/17 Apixaban [Eliquis -] 10 mg PO BID #28 tablet 08/25/17 Aspirin [ASA -] 325 mg PO DAILY #30 tablet 08/25/17 Enoxaparin [Lovenox -] 40 mg SQ BID #30 disp.syrin 08/25/17 Ketorolac Tromethamine [Toradol] 10 mg PO TID #90 tablet 08/25/17
--- NOTE | 2017-08-25 14:10 | OP ---
DATE OF OPERATION: 08/20/2017 ATTENDING SURGEON: Sherif Baeza MD ATTENDING CO-SURGEON: Rom Barksdale MD PREOPERATIVE DIAGNOSIS: Left breast cancer, absent left breast due to mastectomy. POSTOPERATIVE DIAGNOSIS: Left breast cancer, absent left breast due to mastectomy. PROCEDURE PERFORMED: 1. Left JOE (deep inferior epigastric perforators) flap with extensive additional work over and past the amount of time and effort compared to our normal JOE flap. 2. Placement of left internal Doppler. 3. Bilateral ligation SIEV (superior inferior epigastric vein). 4. Mechanical and lytic drug thrombectomy of artery. 5. Repair of arterial vessel. 6. Mechanical and lytic drug removal of clot from artery and vein with use of TPA. 7. Repair of thoracic artery. 8. Repair of thoracic vein. COMPLICATIONS: None. ESTIMATED BLOOD LOSS: 300 mL. DESCRIPTION OF PROCEDURE: The patient was brought to the OR in conjunction with Dr. Apple De Souza; he performed a left mastectomy. Please see his dictation for details of his operation. When he was done with his portion of the operation our breast reconstruction then commenced. Attention was paid to the abdomen where the previously marked ellipse of tissue from just above the umbilicus down to the pubic symphysis was incised with a 15-blade scalpel. Dissection was carried down through the subcutaneous tissue beveling away from the flap in order to increase the volume using electrocautery. When the abdominal fascia was encountered, the skin and subcutaneous tissue was elevated off the abdominal fascia in the lateral to medial direction. At the deep inferior edge of the left and right JOE flap meticulous dissection was performed and the superficial inferior epigastric artery and vein were identified. These were kept intact and in continuity with the flap and they were traced down into the groin to their origin where they were clipped and divided. They were dissected out and kept in continuity with the flap in case additional inflow or outflow was needed later in the case for this flap. Elevation of the left JOE flap then proceeded. On the preoperative MRA the left JOE flap was noted to have significantly larger and better perforators. These were identified intraoperatively. When the lateral edge of the rectus sheath was encountered, dissection was continued using microsurgical technique using Micro DeBakeys and bipolar cautery. The two dominant lateral perforators were identified and kept in continuity with the flap. The anterior rectus fascia was then incised in the superior and infection direct. A small cuff of fascia was kept adjacent to the passenger service manager. The rectus muscle was then atraumatically split in line with its longitudinal fibers with appropriate retraction and the perforators were traced down to the deep inferior epigastric artery vessels. The perforators were kept in continuity with the deep inferior epigastric artery vessels and the main pedicle was traced inferiorly into the groin. All small branches were clipped and divided as necessary and the flap was then ready for transaction of the pedicle and transfer to the chest. Attention was paid to the left chest where the internal mammary artery and veins were exposed. The mastectomy pocket was thoroughly irrigated and all points of bleeding were stopped with electrocautery. The pectoralis major muscle was divided overlying the third rib using electrocautery in line with its longitudinal fibers. The third rib was scored and using a finger elevator the perichondrium was elevated off the third cartilaginous portion of the third rib. Then using a rongeur the cartilaginous portion of the third rib was removed for a length of 2 cm. Under 3.5 loupe magnification the posterior perichondrium was elevated and using meticulous microsurgical technique, the internal mammary artery and two adjacent internal mammary veins were identified. They were freed of all small branches for 2 cm in the superior direction and prepared for microsurgical anastomosis. The pedicle at the left JOE flap was then clipped and divided. The flap was placed in the appropriate orientation and was brought up to the chest. The flap pedicle was placed in alignment with the internal mammary artery and veins and the operating microscope was brought into position. The JOE flap was completely secured in the appropriate position using 2-0 Vicryl sutures. Under the operating microscope, the two internal mammary veins had a single green clip placed proximally and a single small automatic clip placed distally and they were divided with the automatic clip. The lumen was measured. It was a noted that a 2.5 mm vessel crew member would fit well up on the medial and a 2.0 mm vessel crew member would fit well on the lateral. The flap pedicle and veins were also measured and irrigated with heparinized saline solution in a standard manner with the same size vessel crew member. The vessel crew member was loaded with a 2.5 mm vessel crew member and it was lowered into the operative field under operating microscope. The larger medial vein of the pedicle the cut end was brought up in through vessel crew member and inverted over the coupling spikes and secured in position using the J-Hole. The lumen was then irrigated with heparinized saline solution and noted to be in good position and free of debris. The vessel crew member was then lowered adjacent to the medial internal mammary vein the cut end which was brought up into the coupling device, everted over the coupling spikes and secured in position using the J-Hole. The lumen was then irrigated with heparinized solution and noted to be free of debris and in good posit ion. The vessel crew member was closed creating a secured coupled anastomosis. The single green clamp was removed and there was noted to be excellent backflow across the anastomosis. Attention was then paid to the medial wound. The vessel crew member was loaded with a 2.0 mm vessel crew member where it was lowered into the operative field. The cut end of the lateral vein was brought up in through the coupling device. It was everted over the coupling spikes and secured in position using a J-Hole. It was irrigated with heparinized solution and was noted to be free of debris and in good position. The vessel crew member was then lowered adjacent to the lateral internal mammary vein the cut end of which was brought up through the coupling device, inverted over the coupling spikes, and secured in position using the J-Hole. The wounds were then irrigated and noted to be free of debris and in good position. The vessel crew member was closed creating a secure vessel crew member of 2.0 mm anastomosis. The single green clamp was removed and there was noted to be excellent flow across the anastomosis. Attention was the paid to the arterial anastomosis. The double green clamp was applied to the internal mammary artery proximally. A medium clip was applied distally and the artery was divided. The pedicle artery was placed to the second portion of the double green clamp and the lumens of the internal mammary artery and pedicle artery were placed in alignment. Using an 8-0 nylon suture a hand-sewn anastomosis was performed in an interrupted fashion. After completion of the hand-sewn anastomosis, the double green clamp was removed and there was noted to be pulsatile flow in the pedicle and a strong audible Doppler signal with the hand-held Doppler along the pedicle and peripheries. For postoperative monitoring and intraoperative monitoring, an internal Doppler was placed. A small cuff was created surrounding the pedicle artery using the Johnson dissector. The cup of the implantable Doppler was opened, it was secured to the chest and the probe was passed around the pedicle artery and it was secured in position using MicroClips. It was plugged into the Doppler box and there was noted to be a strong healthy signal. The flap was placed within the mastectomy pocket. The operating microscope was brought away from the patient and the skin was temporarily closed using skin staplers. Attention was paid to the abdominal closure. Throughout the rest of the entire operation the flap was monitored using the implantable Doppler. At the abdomen the single vertical incision in the anterior aspect of the fascia on the left side was closed using [id number] PDS sutures in an interrupted fashion placed along 1 cm apart and 1 cm off the edge of the fascia. After a complete closure had been performed, two more layers of suture were used over running this with a 0 Stratafix PDS in multiple layers in a running horizontal mattress fashion. After closure of the fascia the skin and subcutaneous flap was elevated in the superior direction of bleed and mobilized in the inferior direction. Approximately 30 minutes into the abdominal closure work, there was noted to be a change of signal on the implantable Doppler. Attention was then paid to the chest and the operating microscope was brought into position. At the left chest the flap was gently removed from the pocket. The pedicle was investigated and the flap was carried up and repositioned. There was noted to be clot at the arterial anastomosis. Retractors were placed and under the operating microscope three sutures were re moved from the arterial anastomosis. There was noted to be white clot within the arterial anastomosis. Both venous anastomoses appeared to be soft and patent and free flowing. A mechanical thrombectomy was then performed. The white clot was removed using the dilator forceps. The pedicle artery was milked using 2 forceps in a retrograde direction removing clot from the pedicle and teasing it form the open portion of the anastomosis. The artery was then flushed with the heparinized saline solution. Approximately 200 mL of heparinized saline solution was used and it flowed through the flap without any resistance and was seen flowing freely through the veins and returning. At this point repair of the internal mammary artery was performed under the operating microscope. An -8-0 nylon suture was used to repair the artery. Interrupted sutures were replaced in completion. The single wound clamp was removed and there was noted to be excellent pulsatile flow across the anastomosis. The internal Doppler then had a strong and bounding signal and the flap was again gently placed within the mastectomy pocket and attention was paid to tailoring and shaping the flap. The skin paddle was marked for preservation of appropriate skin. The excess skin was de-epithelized using a facelift scissor. While performing this work, there was noted to be again a second change in the arterial signal heard on the Doppler box with complete loss of the arterial signal approximately 10 minutes later. The operating microscope was brought into position. The flap was gently removed from the mastectomy pocket, it was secured in the appropriate position, and retractors were placed. The arterial anastomosis was completely taken down. There was noted to be a significant amount of white clot within the anastomosis yet again. This was passed off the field as specimen. The medial vein anastomosis was taken down. There was noted to be a small amount of venous clot within that. The clot in both the artery and vein was mechanically removed using a dilating forcep. Both wounds were then irrigated with heparinized saline solution in order to remove further debris. The decision was then made to use TPA to try to remove any clot and increase pressure within the flap. Then 2 mg of TPA was introduced into the pedicle artery using a 25-gauge angiocath. The artery was then temporarily clipped with a green clip and so was the vein. A total of 5 minutes was then observed on the clock giving the TPA ample time to work through the flap. The flap was then flushed with 100 mL of heparinized saline solution flushing the TPA from the flap and out of the open and cut vein. The medial vein was kept clipped with a single green clamp throughout this portion of the procedure in order to avoid any systemic TPA. After the flap had been thoroughly flushed, attention was paid to repair of the thoracic artery and vein. The internal mammary artery was investigated. There was noted to be some atherosclerotic disease within the flap with plaque-like formation in small sticklings on the wall. The internal mammary was cut back until a healthier portion was exposed. The internal mammary artery was trimmed and the pedicle artery was placed in line with the internal mammary. The hand-sewn anastomosis using an 8-0 nylon suture was performed in an interrupted fashion. Attention was then taken to the repair of the venous thoracic vessels. The internal mammary vein was placed in alignment with the pedicle medial vein. They were both measured and it was noted that a 2.0 mm vessel crew member fit well upon both. The 2.0 mm vessel crew member was opened and loaded and under the operating microscope the cut end of the pedicle vein was brought up into the operating device and reopened over the coupling spikes and secured in position using a J-Hole. The wound was irrigated with heparinized saline-free solution and found to be free of debris in good position. The vessel crew member was then lowered adjacent to the medial internal mammary vein the cut end of which was brought up through the coupling device, everted over the coupling spikes, and secured in position using the J-Hole. The wound was then irrigated with heparinized saline solution and found to be free of debris and in good position. The vessel crew member was closed creating a secure vessel crew member anastomosis. Before removing the vascular clamps from the internal mammary artery and internal mammary vein, the patient was systemically given 1000 units of heparin and placed on the 300 unit per hour drip. After giving time for the heparin and bolus to be administered the microvascular clamps were removed. There was noted to be strong pulsatile flow across the pedicle artery and strong flow down both of the internal mammary veins. The implantable Doppler demonstrated a strong and healthy signal. The flap was again placed within the mastectomy pocket. A No. 19 Andre drain was placed at the left and right side of the abdomen as well as at the breast. All incisions were then closed at the breast, 3-0 PDS at the deep dermal layer, and a 3-0 Monocryl as the final running subcuticular closure and at the abdomen a 0 Quill was placed in the James layer and a 3-0 PDS in the deep dermal layer and a running subcuticular with a 3-0 Monocryl. An inverted V-shape incision was created overlying the umbilical stalk. The umbilicus was brought up into this and then set into the appropriate position. The abdomen incision was then closed with a 4-0 Monocryl suture. Sterile dressings were applied. The patient had a strong and healthy Doppler signal throughout the completion of the case. This case was significantly longer and technically harder than most JOE flaps with an additional 50% time and an additional total of 4 hours needed to create a successful flap. At the completion of this case, there was a healthy left flap with a strong arterial signal, no venous congestion, a capillary refill of 2 seconds and a good prognosis for this flap. The patient will be kept on the heparin drip as long as there is not excessive bleeding and this flap will be monitored carefully. SHERIF BAEZA M.D. [id number]
[2017-08-25 19:22] VITALS: BP 134/90; PULSE 82; TEMP 98.4
--- NOTE | 2017-08-27 17:14 | OP ---
DATE OF OPERATION: 08/20/2017 ATTENDING SURGEON: Rom Barksdale MD ATTENDING CO-SURGEON: Sherif Baeza MD PREOPERATIVE DIAGNOSIS: Left breast cancer, absent left breast due to mastectomy. POSTOPERATIVE DIAGNOSIS: Left breast cancer, absent left breast due to mastectomy. PROCEDURES PERFORMED: 1. 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 2. Placement of left internal implantable Doppler device. 3. Bilateral ligation of superficial inferior epigastric vein. 4. Mechanical and lytic drug thrombectomy of thoracic artery. 5. Repair of arterial vessel in addition to the ordinary anastomotic work of the flap reconstruction. 6. Mechanical and lytic drug removal of clot from artery and vein with use of tissue plasminogen activator. 7. Repair of thoracic artery. 8. Repair of thoracic vein. COMPLICATIONS: None. ESTIMATED BLOOD LOSS: 300 mL DESCRIPTION OF PROCEDURE: The patient is brought to the operating room in conjunction with Dr. Apple Madrigal. He performed a left mastectomy. Please see his dictation for details of his operation. When he completed his portion of the operation, our breast reconstruction then commenced. Attention was paid to the abdomen, where the previously marked ellipse of tissue from just above the umbilicus down to the pubic symphysis was incised with a 15-blade scalpel. Dissection was carried down through the subcutaneous tissue, beveling away from the flap in order to increase volume using electrocautery. When the abdominal fascia was encountered, the skin and subcutaneous tissue were elevated off the abdominal fascia in a lateral to medial direction. At the deep inferior edge of the left and right deep flap, meticulous dissection was performed and the superficial inferior epigastric artery and vein were identified. These were kept intact, in continuity with the flap, as they were traced down into the groin to their origin, where they were clipped and divided. They were dissected out and kept in continuity with the flap in case additional inflow or outflow was needed later in the case for this flap. Elevation of the left JOE flap then proceeded. On the preoperative MRA, the left JOE flap was noted to have significantly larger and better perforators. These were identified intraoperatively when the lateral edge of the rectus sheath was encountered. Dissection was continued using microsurgical technique using micro DeBakey's and bipolar cautery. The two dominant lateral perforators were identified and kept in continuity with the flap. The anterior rectus fascia was then incised in superior and inferior direction. A small cuff of fascia was kept adjacent to the waterworks employee blood vessels. The rectus muscle was then atraumatically split in line with its longitudinal fibers with appropriate retraction and the perforators were traced down to the deep inferior epigastric artery and veins. The perforators were kept in continuity to the deep inferior epigastric artery and vessels, and the main pedicle was traced inferiorly into the groin. All small branches were clipped and divided as necessary, and the flap was then ready for transection of the pedicle and transfer to the chest. Attention was then paid to the left chest, where the internal mammary artery and veins were exposed. The mastectomy pocket was thoroughly irrigated, and all points of bleeding were stopped with electrocautery. The pectoralis major muscle was divided overlying the third rib using electrocautery in line with its longitudinal fibers. The third cartilaginous portion of the rib was scored using a [place] elevator, and the perichondrium was elevated off of the rib. Then, using a rongeur, the cartilaginous portion of the rib was removed for a length of 2 cm. Under 3.5 power loupe magnification, the posterior perichondrium was elevated using meticulous microsurgical technique. The internal mammary artery and two adjacent internal mammary veins were identified. They were freed of all small branches for 2 cm in the superior direction and prepared for microsurgical anastomosis. The pedicle at the left JOE flap was then clipped and divided. The flap was placed in the appropriate orientation and was brought up to the chest. The flap pedicle was placed in alignment with the internal mammary artery and veins. The operating microscope was then brought into position. The JOE flap was completely secured in the appropriate position using 2-0 Vicryl sutures. Under the operating microscope, the two internal mammary veins had a single green clip placed proximally and a single small automatic clip placed distally. They were divided with the automatic clip. The lumen was measured. It was noted that a 2.5-mm orthodontic band maker would fit well on the medial and a 2.0-mm orthodontic band maker would fit well on the lateral vein. The flap pedicle and veins were also measured and irrigated with heparinized saline solution in a standard manner with the same size orthodontic band maker. The orthodontic band maker was loaded with a 2.5-mm orthodontic band maker, and it was loaded into the operative field under operating microscope. The larger medial vein of the pedicle was then cut, and the end was brought up through the orthodontic band maker and everted over the coupling spikes and secured in position using the J-hole instrument. The lumen was then irrigated with heparinized saline solution, noted to be in good position and free of debris. The orthodontic band maker was then lowered adjacent to the medial internal mammary vein. The cut end was brought up into the coupling device, everted over the coupling spikes and secured in position using the J-hole. The lumen was then irrigated with heparinized solution and noted to be free of debris and was in good position. The orthodontic band maker was closed, creating a secure, coupled anastomosis. The single green clamp was removed and there was noted to be excellent backflow across the anastomosis. Attention was then paid to the medial wound. The orthodontic band maker was loaded with a 2-mm orthodontic band maker, where it was lowered into the operative field. The cut end of the lateral vein was brought up through the coupling device. It was everted over the coupling spikes and secured in position using the J-hole instrument. It was irrigated with heparinized saline and was noted to be free of debris and in good position. The orthodontic band maker was then lowered adjacent to the lateral internal mammary vein, the cut end of which was brought up through the coupling device, inverted over the coupling spikes, and secured in position using the J-hole. The wounds were then irrigated and noted to be free of debris and in good position. The orthodontic band maker was closed, creating a secure orthodontic band maker for a 2-mm anastomosis. The single green clamp was removed, and there was noted to be excellent flow across the anastomosis. Attention was then paid to the arterial anastomosis. A double green clamp was applied to the internal mammary artery proximally, a medium clip was applied distally, and the artery was divided at the pedicle. The pedicle artery was placed in line to the second portion of the double-ring clamp, and the lumen of the internal mammary artery and pedicle artery were placed in alignment. Using an 8-0 nylon suture, a hand-sewn anastomosis was performed in an interrupted fashion. After completion of the hand-sewn anastomosis, the double-ring clamp was removed. There was noted to be pulsatile flow in the pedicle and a strong audible Doppler signal with the hand-held Doppler along the pedicle and its peripheries. For postoperative monitoring and intraoperative monitoring, an internal Doppler was placed. A small cuff was created surrounding the pedicle artery using the Johnson dissector. The cuff of the inflatable Doppler was opened. It was secured to the chest, and the probe was then passed around the pedicle artery. It was secured in position using the microclips. It was plugged into the Doppler box, and there was noted to be a strong, healthy, pulsatile signal. The flap was placed within the mastectomy pocket. The operating microscope was brought away from the patient and the skin was temporarily closed using skin roz. Attention was paid to the abdominal closure. Throughout the rest of the entire operation, the flap was monitored using the implantable Doppler. At the abdomen, a single vertical incision in the anterior aspect of the fascia on the left side was closed using a [id number] 0 PDS suture in an interrupted fashion, placed along 1 cm apart and 1 cm off the edge of the fascia. After complete closure had been performed, two more layers of the suture were used, over-running this with a 0 Stratafix PDS in multiple layers in a running horizontal mattress fashion. After closure of the fascia, the skin and the subcutaneous flap were elevated in the superior direction and mobilized in the inferior direction. Approximately 30 minutes into the abdominal closure work, there was noted to be a change of signal in the implantable Doppler. Our attention was then paid to the chest and the operating microscope was brought back into position. At the chest, the flap was gently removed from the pocket. The pedicle was investigated and the flap was carried up and repositioned. There was noted to be a clot in the arterial anastomosis. Retractors were placed onto the operating microscope and 3 sutures were removed from the arterial anastomosis. There was noted to be white clot within the arterial anastomosis. Both venous anastomoses appeared to be soft and patent and free flowing. A mechanical thrombectomy was then performed. The white clot was removed using the dilator forceps. The pedicle artery was milked using two forceps in retrograde direction, removing clot from the pedicle and fusing it with the open portion of the anastomosis. The artery was then flushed with heparinized saline. Approximately 200 mL of heparinized saline were used, and it flowed through the flap without any resistance and was seen flowing freely through the veins and returning. At this point, our repair of the internal mammary artery was performed under the operating microscope. An 8-0 nylon suture was used to repair the artery. Interrupted sutures were placed in completion. The single-wound clamp was removed and there was noted to be excellent pulsatile flow across the anastomosis. The internal Doppler had a strong and bounding signal and the flap was again gently placed within the mastectomy pocket and attention was paid toward tailoring and shaping the flap. The skin paddle was marked for preservation of appropriate skin. The excess skin was de-epithelialized using facelift scissors. While performing this work, there was noted again to be a second change in the arterial signal heard on the Doppler box with complete loss of the arterial signal approximately 10 minutes later. The operating microscope was once again brought into position. The flap was gently removed from the mastectomy pocket. It was secured in position with the appropriate tension and retractors were placed and arterial anastomosis was completely taken apart. There was noted to be a significant amount of white clot within the anastomosis yet again. This was passed off the field as specimen. The medial vein anastomosis was taken down. There was noted to be a small amount of venous clot within that. The clot in both the artery and vein was mechanically removed using the dilating forceps. Both wounds were then irrigated with heparinized saline solution in order to remove further debris. The decision was made to use TPA/tissue plasminogen activator to try to remove clot with an increased pressure within the flap. Then, 2 mm of tissue plasminogen activator were introduced into the pedicle artery using a 25-gauge Angiocath. The artery was then temporarily clipped with a green clamp and so was the vein. A total of 5 minutes was then observed on the clock, giving the tissue plasminogen activator ample time to work through the flap. The flap was then flushed with 100 mL of heparinized saline solution, flushing the tissue plasminogen activator from the flap and out of the open and cut vein. The medial vein was kept clipped with a single green clamp throughout this portion of the procedure in order to avoid any systemic tissue plasminogen activator administration. After the flap had been thoroughly flushed, attention was paid to the repair of the thoracic artery and vein. The internal mammary artery was investigated. There was noted to be some atherosclerotic disease within the flap with plaque-like formation and small sticklings on the wall. The internal mammary was cut back until a healthier portion was exposed. The internal mammary artery was trimmed, and the pedicle artery was placed in line with the internal mammary artery. A new hand-sewn anastomosis using an 8-0 nylon suture was performed in an interrupted fashion. Attention was then turned to repair of the venous thoracic vessels. The internal mammary artery was placed in alignment with the pedicle and the medial vein. They were both measured and it was noted that a 2-mm orthodontic band maker fit well upon both. The 2-mm orthodontic band maker was opened and loaded under the operating microscope. The cut end of the pedicle vein was brought up into the operating device, reopened over the coupling spikes and secured in position using a J-hole. The wound was irrigated with heparinized saline-free solution and found to be free of debris and in good position. The orthodontic band maker was then lowered adjacent to the medial internal mammary vein, the cut end of which was brought up through the coupling device, everted over the coupling spikes and secured in position using the J-hole instrument. The wound was then irrigated with heparinized saline solution and found to be free of debris and in good position. The orthodontic band maker was closed, creating a secure, coupled anastomosis. Before removing the vascular clamps from the internal mammary artery and internal mammary vein, the patient was systemically given 1000 units of IV heparin and placed on 300 units per hour of heparin drip. After giving time for the heparin bolus to be administered, microvascular clamps were removed. There was noted to be strong pulsatile flow across the pedicle and strong flow in both directions of the internal mammary vein. The implantable Doppler demonstrated a strong and healthy signal. The flap was again placed within the mastectomy pocket. A number 19 Andre drain was placed in the left and right side of the abdomen as well as through the lateral aspect of the breast. All incisions were then closed at the breast using a 3-0 PDS at the deep layer and a 3-0 Monocryl as the final running subcuticular closure at the abdomen. A 0 Quill was placed in the James layer, a 3-0 PDS in the deep dermal layer and running subcuticular with a 3-0 Monocryl. An inverted V-shaped incision was created overlying the umbilical stalk. The umbilicus was brought up into this and then set into the appropriate position. The abdominal incision was then closed using a 4-0 Monocryl running subcuticular suture. Sterile dressings were applied. The patient had a strong, healthy Doppler signal throughout the completion of the case. The case was significantly longer and technically harder than most JOE flaps with an additional 50% of time and an additional total of 4 hours needed to create a successful flap. At the completion of this case, there was a healthy left flap with a strong arterial signal, no venous congestion, a capillary refill of 2 seconds, and good prognosis for this flap. The patient will be kept on the heparin drip as long as there is not excessive bleeding and the flap will be monitored carefully. Spring [id number]
== END 2017-08-25 21:32 | disposition home or self-care (01) | DRG 362 ==
LOC: JSAMEDAYSX 06:23 → EDSTATUS 08:00 → JICU 20:35 → J7W 08-24 23:28
PROVIDERS: ADMIT Plastic Surgery; ATTEND Plastic Surgery
PROC: 03QY0ZZ Repair Upper Artery, Open Approach (ICD-10-PCS; 2017-08-20)
PROC: 03B10ZZ Excision of Left Internal Mammary Artery, Open Approach (ICD-10-PCS; 2017-08-20)
PROC: 0HWU0JZ Revision of Synthetic Substitute in Left Breast, Open Approach (ICD-10-PCS; 2017-08-20)
PROC: 3E03317 Introduction of Other Thrombolytic into Peripheral Vein, Percutaneous Approach (ICD-10-PCS; 2017-08-20)
PROC: 0HTU0ZZ Resection of Left Breast, Open Approach (ICD-10-PCS; principal; 2017-08-20 08:00)
PROC: 0HRV077 Replacement of Bilateral Breast using Deep Inferior Epigastric Artery Perforator Flap, Open Approach (ICD-10-PCS; 2017-08-21)
PROC: 0WQF0ZZ Repair Abdominal Wall, Open Approach (ICD-10-PCS; 2017-08-21)
PROC: 0PB10ZZ Excision of 1 to 2 Ribs, Open Approach (ICD-10-PCS; 2017-08-21)
PROC: 03C Upper Arteries, Extirpation (ICD-10-PCS; 2017-08-21)
PROC: 0WJ80ZZ Inspection of Chest Wall, Open Approach (ICD-10-PCS; 2017-08-21)
PROC: 05QY0ZZ Repair Upper Vein, Open Approach (ICD-10-PCS; 2017-08-21)
PROC: 30233N1 Transfusion of Nonautologous Red Blood Cells into Peripheral Vein, Percutaneous Approach (ICD-10-PCS; 2017-08-24)
DX: C50.412 Malignant neoplasm of upper-outer quadrant of left female breast (principal); Z17.0 Estrogen receptor positive status [ER+]; R00.0 Tachycardia, unspecified; I97.89 Other postprocedural complications and disorders of the circulatory system, not elsewhere classified; D62 Acute posthemorrhagic anemia; Y83.8 Other surgical procedures as the cause of abnormal reaction of the patient, or of later complication, without mention of misadventure at the time of the procedure; I70.8 Atherosclerosis of other arteries; E66.9 Obesity, unspecified; Z68.36 Body mass index [BMI] 36.0-36.9, adult
CPT/HCPCS: 36415; 36430; 80048; 80053; 83735; 84100; 84703; 85025; 85027; 85610; 85730; 86850; 86900; 86901; 86922; 88300-TC; 88302-TC; 88307-TC; 88341-TC; 94010; 94760; J1644; J2997; P9038; P9058